=== PATIENT | male | born 1950 | race Caucasian/White ===

== ENCOUNTER → 2017-07-31 | Outpatient (CLI) | payer BC | LOC: PREOP 05:36 | PROVIDERS: ATTEND Internal Medicine | DX: Z01.818 Encounter for other preprocedural examination (principal); Z12.11 Encounter for screening for malignant neoplasm of colon ==

== ENCOUNTER 2017-08-08 07:28 | Day surgery (SDC) | payer BC ==
--- NOTE | 2017-07-18 06:02 | HISTORY AND PHYSICAL ---
DATE OF SERVICE: SCREENING COLONOSCOPY SUMMARY HISTORY OF PRESENT ILLNESS: The patient is a 66-year-old white male seen for yearly wellness evaluation on 07/14. He last underwent colonoscopy in 2005 and had a normal examination at that time. He is not aware of any family history for colon cancer or other GI tract malignancy. He has noted that several blood pressures checked, I think last at the dentist's office were elevated as I recall in the 160-170 systolic range. He has felt well. He is not on any decongestant therapy with no smoking or alcohol history. 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 In 2013, he underwent lumbar laminectomy and has had no significant radicular pain postprocedure. PHYSICAL EXAMINATION: GENERAL: Reveals a well-appearing white male, 6 feet tall, weighed 203 pounds. VITAL SIGNS: Blood pressure was 160/100 at the beginning of the interview, repeated at the end of the interview was 160/102. HEENT EXAMINATION: Unremarkable. Sclerae nonicteric. NECK: Revealed no JVD, adenopathy or bruits. CHEST: Clear. CARDIOVASCULAR: Revealed a regular rate and rhythm without murmur, S3 or S4. ABDOMEN: Soft, supple without mass, organomegaly or tenderness. Rectal examination was deferred to the time of colonoscopy. EXTREMITIES: Reveal no cyanosis, clubbing or edema. ASSESSMENT AND PLAN: 1. The patient was set up for screening colonoscopy as it has been nearly 12 years since his last colonoscopy that was unremarkable. Prep instructions with SuPrep kit were given and questions were answered. 2. Stage 2 hypertension. After discussion, we will initiate benazepril 10 mg daily with followup appointment in 1 month. Discussed cough and angioedema side effect potential. Job ID: [id number] DocumentID: [id number] Dictated Date: 07/15/2017 13:07:52 Sales Marketing Manager Date: 07/15/2017 13:48:35 Dictated By: BIN MARTINEZ MD [facility]
[~2017-08-08] VITALS: Ht 182.9 cm; Wt 93.4 kg
[~2017-08-08 07:28] MED LIST: BENA10TA2 PO
--- OUTSIDE RECORDS SUMMARY | 2017-08-08 07:33 | XMS REPORT | Continuity of Care Document ---
Author Author [facility] Organization [facility] Address Unknown Phone Unavailable Allergies Active Description Code Type Severity Reaction Onset Reported/Identified Relationship to Patient Clinical Status Yes NKANo Known Allergies NKA Miscellaneous Allergy Unknown N/A 02/28/2006 Medications There is no data. Problems Date Dx Coded Attending Type Code Diagnosis Diagnosed By 04/29/2013 RIK VALADEZ MD Ot 724.2 LUMBAGO 04/29/2013 RIK VALADEZ MD Ot V57.1 PHYSICAL THERAPY NEC 07/14/2013 DENISSE TAYLOR MD Ot 724.2 LUMBAGO 07/14/2013 DENISSE TAYLOR MD Ot V57.1 PHYSICAL THERAPY NEC 09/28/2014 RIK VALADEZ MD Ot 724.02 09/28/2014 RIK VALADEZ MD Ot 722.52 09/28/2014 RIK VALADEZ MD Ot V58.69 09/28/2014 RIK VALADEZ MD Ot 722.52 09/28/2014 RIK VALADEZ MD Ot V64.3 09/28/2014 RIK VALADEZ MD Ot 722.52 09/28/2014 RIK VALADEZ MD Ot V58.69 09/28/2014 MICHELLE DHILLON, BIN Will Ot 722.52 09/28/2014 ARACELY BURGER MD Ot 793.11 09/28/2014 ARACELY BURGER MD Ot 814.00 09/28/2014 ARACELY BURGER MD Ot E000.8 09/28/2014 ARACELY BURGER MD Ot E849.0 09/28/2014 ARACELY BURGER MD Ot E928.9 09/28/2014 RIK VALADEZ MD Ot 724.02 09/28/2014 RIK VALADEZ MD, Ot 722.52 09/28/2014 RIK VALADEZ MD Ot V58.69 09/28/2014 RIK VALADEZ MD Ot 722.52 09/28/2014 RIK VALADEZ MD Ot V64.3 09/28/2014 RIK VALADEZ MD Ot 722.52 09/28/2014 RIK VALADEZ MD Ot V58.69 09/28/2014 BIN MARTINEZ MD Ot 722.52 09/28/2014 ARACELY BURGER MD Ot 793.11 09/28/2014 ARACELY BURGER MD Ot 814.00 09/28/2014 ARACELY BURGER MD Ot E000.8 09/28/2014 ARACELY BURGER MD Ot E849.0 09/28/2014 ARACELY BURGER MD, Ot E928.9 04/06/2015 RIK VALADEZ MD Ot 724.02 04/06/2015 RIK VALADEZ MD Ot 722.52 04/06/2015 RIK VALADEZ MD, Ot V58.69 04/06/2015 RIK VALADEZ MD Ot 722.52 04/06/2015 RIK VALADEZ MD Ot V64.3 04/06/2015 RIK VALADEZ MD Ot 722.52 04/06/2015 RIK VALADEZ MD, Ot V58.69 04/06/2015 BIN MARTINEZ MD Ot 722.52 04/06/2015 ARACELY BURGER MD Ot 793.11 04/06/2015 ARACELY BURGER MD Ot 814.00 04/06/2015 ARACELY BURGER MD Ot E000.8 04/06/2015 ARACELY BURGER MD, Ot E849.0 04/06/2015 ARACELY BURGER MD Ot E928.9 01/24/2016 RIK VALADEZ MD Ot 724.02 SPINAL STENOSIS, LUMBAR REG, W/OUT NEURO 01/24/2016 RIK VALADEZ MD, Ot 722.52 LUMB/LUMBOSAC DISC DEGEN 01/24/2016 RIK VALADEZ MD, Ot V58.69 OT MED,LT,CURRENT USE 01/24/2016 WHITE MD, RIK J Ot 722.52 LUMB/LUMBOSAC DISC DEGEN 01/24/2016 RIK VALADEZ MD Ot V64.3 NO PROC FOR REASONS NEC 01/24/2016 RIK VALADEZ MD Ot 722.52 LUMB/LUMBOSAC DISC DEGEN 01/24/2016 RIK VALADEZ MD Ot V58.69 OTH MED,LT,CURRENT USE 01/24/2016 BIN MARTINEZ MD Ot 722.52 LUMB/LUMBOSAC DISC DEGEN 01/24/2016 ARACELY BURGER MD Ot 793.11 SOLITARY PULMONARY NODULE 01/24/2016 ARACELY BURGER MD Ot 814.00 FX CARPAL BONE NOS-CLOSE 01/24/2016 ARACELY BURGER MD Ot E000.8 OTHER EXTERNAL CAUSE STATUS 01/24/2016 ARACELY BURGER MD Ot E849.0 ACCIDENT IN HOME 01/24/2016 ARACELY BURGER MD Ot E928.9 ACCIDENT NOS 09/13/2016 RIK VALADEZ MD Ot 724.02 SPINAL STENOSIS, LUMBAR REG, W/OUT NEURO 09/13/2016 RIK VALADEZ MD Ot 722.52 LUMB/LUMBOSAC DISC DEGEN 09/13/2016 RIK VALADEZ MD, Ot V58.69 OTH MED,LT,CURRENT USE 09/13/2016 RIK VALADEZ MD Ot 722.52 LUMB/LUMBOSAC DISC DEGEN 09/13/2016 RIK VALADEZ MD Ot V64.3 NO PROC FOR REASONS NEC 09/13/2016 RIK VALADEZ MD Ot 722.52 LUMB/LUMBOSAC DISC DEGEN 09/13/2016 RIK VALADEZ MD Ot V58.69 OTH MED,LT,CURRENT USE 09/13/2016 BIN MARTINEZ MD Ot 722.52 LUMB/LUMBOSAC DISC DEGEN 09/13/2016 ARACELY BURGER MD Ot 793.11 SOLITARY PULMONARY NODULE 09/13/2016 ARACELY BURGER MD Ot 814.00 FX CARPAL BONE NOS-CLOSE 09/13/2016 ARACELY BURGER MD Ot E000.8 OTHER EXTERNAL CAUSE STATUS 09/13/2016 ARACELY BURGER MD Ot E849.0 ACCIDENT IN HOME 09/13/2016 ARACELY BURGER MD Ot E928.9 ACCIDENT NOS 07/17/2017 RIK VALADEZ MD Ot 724.02 SPINAL STENOSIS, LUMBAR REG, W/OUT NEURO 07/17/2017 RIK VALADEZ MD Ot 722.52 LUMB/LUMBOSAC DISC DEGEN 07/17/2017 RIK VALADEZ MD Ot V58.69 OTH MED,LT,CURRENT USE 07/17/2017 RIK VALADEZ MD Ot 722.52 LUMB/LUMBOSAC DISC DEGEN 07/17/2017 IRK VALADEZ MD Ot V64.3 NO PROC FOR REASONS NEC 07/17/2017 RIK VALADEZ MD Ot 722.52 LUMB/LUMBOSAC DISC DEGEN 07/17/2017 RIK VALADEZ MD Ot V58.69 OTH MED,LT,CURRENT USE 07/17/2017 MICHELLE DHILLON, BIN Will Ot 722.52 LUMB/LUMBOSAC DISC DEGEN 07/17/2017 ARACELY BURGER MD Ot 793.11 SOLITARY PULMONARY NODULE 07/17/2017 ARACELY BURGER MD Ot 814.00 FX CARPAL BONE NOS-CLOSE 07/17/2017 ARACELY BURGER MD Ot E000.8 OTHER EXTERNAL CAUSE STATUS 07/17/2017 ARACELY BURGER MD Ot E849.0 ACCIDENT IN HOME 07/17/2017 ARACELY BURGER MD Ot E928.9 ACCIDENT NOS Procedures There is no data. Results There is no data. Encounters ACCT No. Visit Date/Time Discharge Status Pt. Type Provider Facility Loc./Unit Complaint [id number] 02/16/2014 16:04:00 02/16/2014 23:59:59 CLS Outpatient ARACELY BURGER MD [facility] RAD LT WRIST PAIN [id number] 07/07/2013 15:46:00 07/14/2013 16:16:00 DIS Outpatient DENISSE TAYLOR MD [facility] REHAB BACK PAIN [id number] 04/27/2013 08:04:00 04/29/2013 16:19:00 DIS Outpatient RIK VALADEZ MD [facility] REHAB LUMBAGO [id number] 04/22/2013 07:52:00 04/22/2013 23:59:59 CLS Outpatient JENNYFER DHILLON, ARACELY Mays [facility] RAD LUNG NODULAR [id number] 03/25/2013 15:46:00 03/25/2013 23:59:59 CLS Outpatient BIN MARTINEZ MD [facility] RAD BACK PAIN [id number] 03/19/2013 06:59:00 03/19/2013 23:59:59 CLS Outpatient RIK VALADEZ MD [facility] CARD DDD-LUMBAR [id number] 03/18/2013 15:43:00 03/18/2013 23:59:59 CLS Outpatient RIK VALADEZ MD [facility] CARD DDD-LUMBAR [id number] 03/12/2013 10:44:00 03/12/2013 23:59:59 CLS Outpatient RIK VALADEZ MD [facility] CARD DDD-LUMBAR [id number] 03/04/2013 12:11:00 03/04/2013 23:59:59 CLS Outpatient RIK VALADEZ MD [facility] RAD LUMBAGO [id number] 08/08/2017 08:00:00 PEN Preadmit BIN MARTINEZ MD [facility] ENDO SCREENING [id number] 09/28/2014 10:20:00 Document Registration
--- OUTSIDE RECORDS SUMMARY | 2017-08-08 07:33 | XMS REPORT | Continuity of Care Document ---
Author Author [employer] Organization [facility] Address Unknown Phone Unavailable Care Team Providers Care Metal Cabinet Finisher Name Role Phone [employer] Unavailable Unavailable Problems Medications Allergies, Adverse Reactions, Alerts Immunizations Results Vital Signs Encounters Procedures Plan of Care Social History Assessment and Plan Family History Advance Directives Functional Status
[2017-08-08] MEDS ORDERED: 1/2 NS IV SOLUTION 1,000 ML IV ONE (07:34)
[2017-08-08] MEDS ORDERED: fentaNYL INJECTION 100 MCG/2 ML AMP ONE (07:45)
[2017-08-08] MEDS ORDERED: LIDOCAINE JELLY 2% (XYLOCAINE) 5 ML TUBE ONE (07:45)
[2017-08-08] MEDS ORDERED: MIDAZOLAM 2 MG/2 ML (VERSED) VIAL ONE (07:45)
[2017-08-08] MEDS ORDERED: 1/2 NS IV SOLUTION 1,000 ML IV STA (08:18)
[2017-08-08 08:20] VITALS: BP 148/92
[2017-08-08] MEDS ORDERED: LIDOCAINE JELLY 2% (XYLOCAINE) 5 ML TUBE MM PRN (08:30)
[2017-08-08] MEDS ORDERED: MIDAZOLAM 2 MG/2 ML (VERSED) VIAL IVP PRN (08:30)
[2017-08-08] MEDS ORDERED: fentaNYL INJECTION 100 MCG/2 ML AMP IVP PRN (08:30)
--- NOTE | 2017-08-08 08:44 | Pre-Op Note & Conscious Sedat ---
Pre-Operative Progress Note H&P Reviewed The H&P was reviewed, patient examined and no changes noted. Date H&P Reviewed: Aug 08, 2017 Time H&P Reviewed: 07:50 Conscious Sedation Pre-Proced ASA Class: 2 Airway Mallampati Classification: ([place] appropriate class) I. II. III, IV Lungs Heart ASA score ASA 1: a normal healthy patient ASA 2: a patient with a mild systemic disease (mid diabetes, controlled hypertension, obesity ASA 3: a patient with a severe systemic disease that limits activity (angina , COPD, prior Myocardial infarction) ASA 4: a patient with an incapacitating disease that is a constant threat to life (CHF, renal failure) ASA 5: a moribund patient not expected to survive 24 hrs. (ruptured aneurysm) ASA 6: a declared brain patient whose organs are being harvested. For emergent operations, add the letter E after the classification Grade 2 Sedation Plan: Analgesia, Amnesia, Plan communicated to team members, Discussed options with patient/fam, Discussed risks with patient/fam Note The patient is an appropriate candidate to undergo the planned procedure, sedation, and anesthesia. The patient immediately re-assessed prior to indication. BIN MARTINEZ MD Aug 08, 2017 08:44
[2017-08-08 08:45] VITALS: BP 165/95
[2017-08-08 09:00] VITALS: BP 159/93
[2017-08-08 09:51] VITALS: BP 159/93
--- NOTE | 2017-08-08 16:35 | OPERATIVE REPORT ---
DATE OF SERVICE: COLONOSCOPY SUMMARY INDICATION FOR PROCEDURE: Screening colonoscopy. DESCRIPTION OF PROCEDURE: The patient was placed in the left lateral decubitus position. Prior to undergoing colonoscopy digital rectal evaluation was performed. Anal sphincter tone was normal and the perianal reflex was intact. The prostate was normal in size, anodular and nontender to digital inspection. No abnormalities were noted on digital inspection of the anal canal or distal rectal vault. The colonoscope was then inserted into the rectum and under direct visualization advanced to the cecum. The cecum was identified by identification of the ileocecal valve and the cecal strap. Photographic documentation was obtained. Careful inspection was made as the colonoscope was withdrawn. The quality of prep was good. The patient tolerated the procedure well. FINDINGS: There was no evidence for internal or external hemorrhoids. The rectum was unremarkable. Present throughout the colon were numerous npxnh-so-jpqhhacd size venous lakes, no evidence for bleeding or stigmata for increase in bleeding risk were noted. Several small to medium size sigmoid diverticulum were present without evidence for diverticulitis. Other than the aforementioned venous lakes, the descending colon, splenic flexure, transverse colon, hepatic flexure were unremarkable. Present in the proximal ascending colon was a questionable diminutive polyp, somewhat umbilicated, but with uniform mucosal features, no evidence for ulceration. It was photographed and biopsied and ablated and submitted for histopathology with no blood loss. The cecum of the colon was unremarkable. ASSESSMENT: Questionable diminutive sessile polyp was removed from the proximal ascending colon via hot forceps as noted above. The patient did demonstrate multiple small to medium size venous lakes throughout the colon with no arterial vascular malformations being noted. Mild diverticular disease confined to the sigmoid colon was present without evidence for diverticulitis. As long as there are no surprises on histopathology report, we will likely be advocating consideration for repeat screening colonoscopy in 10 years. Job ID: [id number] DocumentID: [id number] Dictated Date: 08/08/2017 09:28:32 Hazardous Materials Handler Date: 08/08/2017 16:34:40 Dictated By: BIN MARTINEZ MD [facility]
== END 2017-08-08 09:10 | disposition home or self-care (01) ==
LOC: ENDO 07:28
PROVIDERS: ATTEND Internal Medicine
DX: Z12.11 Encounter for screening for malignant neoplasm of colon (principal); K63.5 Polyp of colon; K57.30 Diverticulosis of large intestine without perforation or abscess without bleeding; K55.8 Other vascular disorders of intestine; I10 Essential (primary) hypertension; Z79.899 Other long term (current) drug therapy

== ENCOUNTER → 2019-08-17 | Outpatient (CLI) | payer MEDICARE ==
[~2019-08-17] MED LIST changes: -BENA10TA2 PO; +BENA10TA66 PO
--- NOTE | 2019-08-17 11:14 | Diagnostic Imaging Report ---
EXAMINATION: Right humerus. INDICATION: Injury. AP and lateral views were obtained. COMPARISON: There are no prior studies available for comparison. FINDINGS: There is no fracture, dislocation or acute bony abnormality evident. There are two linear areas of increased density overlying the scapula. These are of uncertain etiology but unlikely related to a fracture. There is mild degenerative disease involving the glenohumeral and acromioclavicular joints. The elbow joint where visualized is unremarkable. The soft tissues show no sign of an acute injury. IMPRESSION: 1. There is no evidence for an acute bony abnormality. 2. If there is clinical concern regarding an injury to the rotator cuff or labrum, then MRI would be recommended for further evaluation. 3. These results were discussed with Dr. Hoffmann. Dictated by: Dictated on workstation # [id number]
== END ==
LOC: RAD 10:52
PROVIDERS: ATTEND Internal Medicine
DX: S49.91XA Unspecified injury of right shoulder and upper arm, initial encounter (principal)
CPT/HCPCS: 73060

== ENCOUNTER → 2021-03-14 | Outpatient (CLI) | payer MEDICARE | LOC: CARD 13:22 | PROVIDERS: ATTEND Internal Medicine Cardiovascular Disease | DX: I10 Essential (primary) hypertension (principal); I25.10 Atherosclerotic heart disease of native coronary artery without angina pectoris | CPT/HCPCS: 93306 ==

== ENCOUNTER 2021-05-25 13:35 | Inpatient (IN) | payer OTHER, MEDICARE ==
[~2021-05-25] VITALS: Ht 177 cm; Wt 95.3 kg
[2021-05-25] MEDS ORDERED: LACTULOSE SYRUP 10GM/15ML (ENULOSE) 30ML UDC PO PRN (14:15)
[2021-05-25] MEDS ORDERED: FLEET ENEMA ADULT 1 EA BTL PR PRN (14:15)
[2021-05-25] MEDS ORDERED: ACETAMINOPHEN 325 MG TABLET PO PRN (14:15)
[2021-05-25] MEDS ORDERED: ALPRAZolam 0.25 MG (XANAX) TAB PO PRN (14:15)
[2021-05-25] MEDS ORDERED: DOCUSATE SODIUM 100 MG (COLACE) CAP PO PRN (14:15)
[2021-05-25] MEDS ORDERED: MELATONIN 3 MG TABLET PO PRN (14:15)
[2021-05-25] MEDS ORDERED: LOPERAMIDE 2 MG (IMODIUM) TABLET PO PRN (14:15)
[2021-05-25] MEDS ORDERED: BISACODYL 10 MG SUPP (DULCOLAX) PR PRN (14:15)
[2021-05-25] MEDS ORDERED: ONDANSETRON 4 MG (ZOFRAN) ORAL DISSOLVE TAB PO PRN (14:15)
[2021-05-25] MEDS ORDERED: ACETAMINOPHEN 500 MG TAB (TYLENOL) PO PRN (14:15)
[2021-05-25] MEDS ORDERED: guaiFENesin/CODEINE (ROBITUSSIN AC) 10ML UDC PO PRN (14:15)
[2021-05-25] MEDS ORDERED: CALCIUM CARBONATE 500 MG (TUMS) TAB.CHEW PO PRN (14:15)
[2021-05-25] MEDS ORDERED: ACET-2267 PO (15:39)
[2021-05-25] MEDS ORDERED: benazepril (15:39)
[2021-05-25] MEDS ORDERED: ASPI-808 PO (15:39)
[2021-05-25] MEDS ORDERED: CHOL500L3 PO (15:39)
[2021-05-25] MEDS ORDERED: OXC5T PO (15:45)
[2021-05-25] MEDS ORDERED: OMEP20TA7 PO (15:45)
[2021-05-25] MEDS ORDERED: MELO7.5T46 PO (15:45)
[2021-05-25] MEDS ORDERED: FLUO40CA PO ×2 (15:45)
[2021-05-25] MEDS ORDERED: POLY17PO54 PO (15:45)
[2021-05-25] MEDS ORDERED: CHOL200059 PO (16:17)
[2021-05-25] MEDS ORDERED: BENA40TA84 PO (16:17)
--- NOTE | 2021-05-25 16:23 | PM&R Post Admission Assessment ---
PM&R Date of Visit: May 25, 2021 Time of Visit: 17:45 History of Present Illness Chief complaint: Skydiving accident frame right femur fracture left ankle fracture History of present illness: This is a 70-year-old white male with past medical history of hypertension who suffered significant injuries in a skydiving accident with a parachute malfunctioned. He had surgery on Friday to repair right femur fracture and left ankle fracture. Dr. Chaney had repaired his right ankle with hardware placement in June and required due to chronic urticaria from the metal in the hardware. The ankle had nearly healed when this injury occurred. Currently has no difficulty voiding and his bowels are moving now. He does report a penile ecchymosis but no pain. His is at the bedside. Past Acywopr-Xfpkqg-Xeppsz Hx Past Med/Social Hx: Reviewed Nursing Past Med/Soc Hx, Reviewed and Corrections made Patient Social History Marrital Status: Employed/Student: employed Alcohol Use: Occasionally Uses Smoking Status: Never a Smoker Recent Hopitalizations: No Immunizations Up To Date Date of Influenza Vaccine: Mar 16, 2017 Seasonal Allergies Seasonal Allergies: No Past Medical History Surgeries: Orthopedic Cardiac: Hypertension Psychosocial: Anxiety, Depression PM&R Allergy/Meds/Data Review Allergies Coded Allergies: No Known Allergies (Verified Allergy, Unknown, 02/28/06) Home Medications Scheduled Acetaminophen (Tylenol Extra Strength), 1,000 MG PO Q8H, (Reported) Aspirin (Aspirin), 325 MG PO BID, (Reported) Benazepril HCl (Benazepril HCl), 40 MG PO DAILY, (Reported) Cholecalciferol (Vitamin D3) (Vitamin D3), 50 MCG PO DAILY, (Reported) Fluoxetine HCl (Fluoxetine HCl), 40 MG PO DAILY, (Reported) Meloxicam (Meloxicam), 7.5 MG PO DAILY, (Reported) Omeprazole (Omeprazole), 20 MG PO DAILY, (Reported) Polyethylene Glycol 3350 (Polyethylene Glycol 3350), 17 GM PO DAILY, (Reported) Scheduled PRN Oxycodone Hcl (Oxyir Tablet), 1-2 TAB PO Q4H PRN for PAIN-SEVERE (8-10), (Reported) Discontinued Medications Benazepril HCl (Benazepril HCl), 10 MG PO DAILY, (Reported) Discontinued Reason: No Longer Taking Cholecalciferol (Vitamin D3) (Vitamin D3), 12.5 MCG PO DAILY, (Reported) Discontinued Reason: No Longer Taking Fluoxetine HCl (Fluoxetine HCl), 40 MG PO DAILY, (Reported) Discontinued Reason: No Longer Taking [benazepril], DAILY, (Reported) Discontinued Reason: No Longer Taking Current Medications Current Medications Reviewed Review of Systems Constitutional: see HPI, malaise, weakness EENTM: no symptoms reported Respiratory: no symptoms reported Cardiovascular: no symptoms reported Gastrointestinal: no symptoms reported Genitourinary: no symptoms reported Musculoskeletal: back pain, muscle pain, muscle stiffness, muscle cramps, muscle weakness Skin: no symptoms reported Psychiatric/Neurological: Anxiety, Depressed All Other Systems Reviewed Negative Unless Noted: Yes Physical Exam Physical Exam Vital Signs Capillary Refill : Height, Weight, BMI Height: 6'0.00" Weight: 206lbs. 0.0oz. 93.855463rz; 27.9 BMI Method: General Appearance: No Apparent Distress, WD/WN Eyes: Bilateral Eye Normal Inspection, Bilateral Eye PERRL HEENT: PERRL/EOMI, Normal ENT Inspection, Pharynx Normal Neck: Full Range of Motion, Normal Inspection, Non Tender, Supple, Carotid Bruit Respiratory: Chest Non Tender, Lungs Clear, Normal Breath Sounds, No Accessory Muscle Use, No Respiratory Distress Cardiovascular: Regular Rate, Rhythm, No Edema, No Gallop, No JVD, No Murmur, Normal Peripheral Pulses Gastrointestinal: Normal Bowel Sounds, No Organomegaly, No Pulsatile Mass, Non Tender, Soft Back: Normal Inspection, No CVA Tenderness, No Vertebral Tenderness Extremity: Normal Capillary Refill, Normal Inspection, Normal Range of Motion (Limited left ankle and right leg), Non Tender, No Calf Tenderness, No Pedal Edema Neurologic/Psychiatric: Alert, Oriented x3, No Motor/Sensory Deficits, Normal Mood/Affect, Other (Nonweightbearing) Skin: Normal Color, Warm/Dry Lymphatic: No Adenopathy PM&R Medical Assessment & Plan REHAB/MEDICAL ASSESSMENT AND PLAN: REHAB IMPAIRMENT GROUP: Traumatic orthopedic injuries ETIOLOGIC DIAGNOSIS: Traumatic orthopedic injuries The comorbidities that impact the patients function and/or functional outcome by: Nonweightbearing status REHAB PLAN: The patient is being admitted to our comprehensive inpatient rehabilitation facility and can tolerate the intensity of service consisting of at least: 180 minutes of therapy a day, 5 out of 7 days a week Rehab treatment will consist of: PT and OT will focus on regaining function with nonweightbearing status and increasing ADLs with the use of assistive devices The patient/family has a good understanding of our discharge process and will benefit from an interdisciplinary inpatient rehabilitation program. The patient has potential to make improvement and is in need of at least two of the following multidisciplinary therapies including but not limited to physical, occupational, speech, and prosthetics and orthotics. Additionally the patient will need services from respiratory, nutritional services, wound care, psychology, etc. (Customize this to each patient). Given the patients complex condition and risk of further medical complications, rehabilitation services cannot be safely or effectively provided at a lower level of care such as a fpc facility. BARRIERS TO DISCHARGE: Nonweightbearing status ESTIMATED LOS: 14 days DISPOSITION: Home RELEVANT CHANGES SINCE PREADMISSION SCREENING: I have compared the patients medical and functional status at the time of the preadmission screening and there are: No changes PROGNOSIS: Good REHABILITATION GOALS: 1. PT and OT will focus on regaining function with nonweightbearing status and increasing ADLs with the use of assistive devices All the above goals were reviewed with the patient and he/she is in agreement. By signing this document, I acknowledge that I have personally performed a full physical examination on this patient within 24 hours of admission to this inpatient rehabilitation facility and have determined the patient to be able to tolerate the above course of treatment at an intensive level for a reasonable period of time. I will be completing a detailed individualized Plan of Care for this patient by day #4 of the patients stay based upon the Preadmission Screen, the Post-Admission Evaluation, and the therapy evaluations. Admission Dx/Comorbidities: (1) Trauma ICD Codes: T14.90XA - Injury, unspecified, initial encounter (2) Closed right femoral fracture ICD Codes: S72.91XA - Unspecified fracture of right femur, initial encounter for closed fracture (3) Closed left ankle fracture ICD Codes: S82.892A - Other fracture of left lower leg, initial encounter for closed fracture Assessment/Plan Assessment and Plan Assess & Plan/Chief Complaint Assessment: Skydiving accident Right femur fracture Left ankle fracture Hypertension 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 Chaney Plan: Monitor pain Monitor bowel function Aggressive PT and OT RUDDY MEJIA 10, 2021 16:23
[2021-05-25] MEDS ORDERED: ACETAMINOPHEN 500 MG TAB (TYLENOL) PO SCH (16:30)
[2021-05-25 17:30] VITALS: BP 121/72
[2021-05-25] MEDS: ASPIRIN 325 MG (5 GR) TABLET PO SCH (18:25)
[2021-05-25 20:05] VITALS: BP 127/68
[2021-05-25] MEDS ORDERED: polyethylene glycoL POWDER 17 GM (MIRALAX) PACK PO SCH (21:00)
[2021-05-25] MEDS: DOCUSATE SODIUM 100 MG (COLACE) CAP PO SCH (21:36)
[2021-05-25] MEDS: ACETAMINOPHEN 500 MG TAB (TYLENOL) PO PRN (21:38)
[2021-05-25] MEDS: SENNA W/DOCUSATE (SENOKOT S) TABLET PO SCH (21:40)
[2021-05-26 06:45] LABS: BASOPHILS # (AUTO) 0.1 10^3/uL (0.0-0.1); BASOPHILS % (AUTO) 1 % (0-10); EOSINOPHILS # (AUTO) 0.2 10^3/uL (0.0-0.3); EOSINOPHILS % (AUTO) 2 % (0-10); HEMATOCRIT 24 % (40-54); HEMOGLOBIN 7.8 g/dL (13.3-17.7); LYMPHOCYTES # (AUTO) 1.3 10^3/uL (1.0-4.0); LYMPHOCYTES % (AUTO) 14 % (12-44); MEAN CORPUSCULAR HEMOGLOBIN 27 pg (25-34); MEAN CORPUSCULAR HGB CONC 33 g/dL (32-36); MEAN CORPUSCULAR VOLUME 83 fL (80-99); MEAN PLATELET VOLUME 8.3 fL (9.0-12.2); MONOCYTES % (AUTO) 11 % (0-12); NEUTROPHILS # (AUTO) 5.9 10^3/uL (1.8-7.8); NEUTROPHILS % (AUTO) 64 % (42-75); PLATELET COUNT 273 10^3/uL (130-400); WHITE BLOOD COUNT 9.2 10^3/uL (4.3-11.0)
[2021-05-26 06:58] LABS: ALBUMIN 3.2 GM/DL (3.2-4.5); POTASSIUM 4.9 MMOL/L (3.6-5.0)
[2021-05-26 06:59] LABS: CALCIUM 8.9 MG/DL (8.5-10.1)
[2021-05-26 07:00] LABS: TOTAL PROTEIN 5.7 GM/DL (6.4-8.2)
[2021-05-26 07:02] LABS: BILIRUBIN,TOTAL 0.9 MG/DL (0.1-1.0)
[2021-05-26 07:04] LABS: CREATININE SERUM 1.02 MG/DL (0.60-1.30)
[2021-05-26 08:00] VITALS: BP 129/77
[2021-05-26] MEDS ORDERED: NON-FORMULARY MEDICATION 1 EA EA (Benazepril HCl 40 MG) PO SCH (09:00)
[2021-05-26] MEDS ORDERED: NON-FORMULARY MEDICATION 1 EA EA (Fluoxetine HCl 40 MG) PO SCH ×2 (09:00)
[2021-05-26] MEDS ORDERED: NON-FORMULARY MEDICATION 1 EA EA (Cholecalciferol (Vitamin D3) (Vitamin D3) 50 MCG) PO SCH (09:00)
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
[2021-05-26] MEDS: VITAMIN D3 25 MCG (1,000 UNITS) TABLET PO SCH (09:41)
[2021-05-26] MEDS: FLUoxetine HCL 20 MG (PROzac) CAP PO SCH (09:41)
[2021-05-26] MEDS: MELOXICAM 7.5 MG (MOBIC) TABLET PO SCH (09:41)
[2021-05-26] MEDS: ASPIRIN 325 MG (5 GR) TABLET PO SCH ×2 (09:41→18:35)
[2021-05-26] MEDS: PANTOPRAZOLE 20 MG TABLET (PROTONIX) PO SCH (09:42)
[2021-05-26] MEDS: DOCUSATE SODIUM 100 MG (COLACE) CAP PO SCH ×2 (09:42→21:05)
[2021-05-26] MEDS: lisINopril 40 MG (PRINIVIL) TABLET PO SCH (09:42)
[2021-05-26] MEDS: polyethylene glycoL POWDER 17 GM (MIRALAX) PACK PO SCH (09:48)
[2021-05-26] MEDS: SENNA W/DOCUSATE (SENOKOT S) TABLET PO SCH ×2 (09:48→21:05)
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
--- NOTE | 2021-05-26 13:41 | Physical Therapy Daily Note ---
PT Daily Note-Current Subjective Pt agreeable to treatment. Transfers SCALE: Activities may be completed with or without assistive devices. 0-Jsnrpsgapa-ghgulax completes the activity by him/herself with no assistance from a helper. 5-Set-up or Clean-up Assistance-helper sets up or cleans up; patient completes activity. [place] assists only prior to or following the activity. 4-Supervision or Touching Assistance-helper provides verbal cues and/or touching/steadying and/or contact guard assistance as patient completes activity. Assistance may be provided throughout the activity or intermittently. 3-Partial/Moderate Assistance-helper does LESS THAN HALF the effort. [place] lifts, holds or supports trunk or limbs, but provides less than half the effort. 2-Substantial/Maximal Assistance-helper does MORE THAN HALF the effort. [place] lifts or holds trunk or limbs and provides more than half the effort. 1-Yrftgfvvn-fuhxav does ALL the effort. Patient does none of the effort to complete the activity. Or, the assistance of 2 or more helpers is required for the patient to complete the activity. If activity was not attempted, code reason: 7-Patient Refused. 9-Not Applicable-not attempted and the patient did not perform the activity before the current illness, exacerbation or injury. 10-Not Attempted due to Environmental Limitations-(lack of equipment, weather restraints, etc.). 88-Not Attempted due to Medical Conditions or Safety Concerns. Practiced use of slide board to (L) and (R) from varied surfaces and heights. Education on technique and safety. Weight Bearing Right Lower Extremity: Right Non Weight Bearing Left Lower Extremity: Left Non Weight Bearing Right shoulder non wt bearing unless at the side and internally rotated Wheelchair Training Does the Pt Use a Wheelchair?: Yes Type of Wheelchair: Manual Worked on self propulsion with manual wheel chair. Reviewed safety of brake setting and also use of foot propulsion to reduce strain on his injured shoulders. Pt needs footware wih traction in order to effectively foot propel the w/c. Exercises Supine Ex: Ankle pumps, Quad Set, Rolling, Glut sets, Lower trunk rotation, Heel Slides, Short Arc Quads, Resisted flex/ext, Straight leg raise, Hip abd/add Supine Reps: 30 Assessment Current Status: Fair Progress Pt made gains during treatment. Education improved his slideboard and w/c managment. Exercise benefited quad contraction and knee ROM. Co treated this session with OT to allow maximization dual task activities between UE and LE function. OT focused on UE hand placement and training while PT focused on protecting weight bearing status and trunk control. PT Short Term Goals Short Term Goals Time Frame: May 30, 2021 Roll Left & Right: 6 Sit to lyin Lying to sitting on side of be: 6 Sit to stand: 88 Chair/qyd-pq-ykriv transfer: 5 Toilet transfer: 5 Car transfer: 4 Walk 10 feet: 88 Walk 50 feet with two turns: 88 Walk 150 feet: 88 Walking 10ft on uneven surface: 88 1 step (curb): 88 4 steps: 88 12 steps: 88 Picking up objects: 88 Does pt use a wc or scooter: Yes Wheel 50ft w/2 turns: 6 Wheel 150 feet: 5 Type: Manual PT Shelter Goals Shelter Goals PT Gum Cook Goals Time Frame: Jun 02, 2021 Roll Left & Right (QC): 6 Sit to Lying (QC): 6 Lying-Sitting on Side/Bed(QC): 6 Sit to Stand (QC): 88 Chair/Kpc-wo-Ukdqd Xfer(QC): 6 Toilet Transfer (QC): 6 Car Transfer (QC): 5 Does the Patient Walk: No and Walking Goal NOT indicated Walk 10 feet (QC): 88 Walk 50ft with 2 Turns (QC): 88 Walk 150 ft (QC): 88 Walking 10ft on Uneven Surface: 88 1 Step (curb) (QC): 88 4 Steps (QC): 88 12 Steps (QC): 88 Picking up an Object (QC): 88 Does the Pt use WC or Scooter?: Yes Wheel 50 feet with 2 turns (QC: 6 Type: Manual Wheel 150 feet: 6 Type: Manual PT Plan Treatment/Plan Treatment Plan: Continue Plan of Care Treatment Plan: Bed Mobility, Education, Functional Activity Rey, Functional Strength, Safety, Therapeutic Exercise, Transfers Treatment Duration: Jun 02, 2021 Frequency: At least 5 of 7 days/Wk (IRF) Estimated Hrs Per Day: 1.5 hours per day Patient and/or Family Agrees t: Yes Time/GCodes Time In: 810 Time Out: 0930 Total Billed Treatment Time: 80 Total Billed Treatment visit, FA 15min, Ex 65 min FADIA GILMORE PT May 26, 2021 13:40
[2021-05-26 20:00] VITALS: BP 121/64
--- NOTE | 2021-05-27 06:17 | PM&R Progress Note ---
Subjective HPI/CC On Admission Date Seen by Provider: May 27, 2021 Time Seen by Provider: 12:00 Subjective/Events-last exam 05/27/21: Patient doing well Had shower today with his helping him Pain after shower required pain pill Iron low and he is willing to have iron infusions and it is indicated due to hgb 7.8 and he feels run down B12 low also so will supplement that too Back rash will be managed with cream 05/26/21: No major issues Worked with therapy very well per William, PT Transfers well Hgb 7.8 will await iron level BM+ Voiding well LFT good Review of Systems General: Fatigue, Malaise Musculoskeletal: back pain, hand pain, leg pain, foot pain Objective Exam Vital Signs Vital Signs Date Time Temp Pulse Resp B/P (MAP) Pulse Ox O2 Delivery O2 Flow Rate FiO2 05/27/21 20:36 98 Room Air 05/27/21 19:56 37.0 85 18 119/60 (79) Capillary Refill : General Appearance: No Apparent Distress, WD/WN HEENT: PERRL/EOMI, Normal ENT Inspection, Pharynx Normal Neck: Full Range of Motion, Normal Inspection, Non Tender, Supple, Carotid Bruit Respiratory: Chest Non Tender, Lungs Clear, Normal Breath Sounds, No Accessory Muscle Use, No Respiratory Distress Cardiovascular: Regular Rate, Rhythm, No Edema, No Gallop, No JVD, No Murmur, Normal Peripheral Pulses Gastrointestinal: Normal Bowel Sounds, No Organomegaly, No Pulsatile Mass, Non Tender, Soft Back: Normal Inspection, No CVA Tenderness, No Vertebral Tenderness Extremity: Normal Capillary Refill, Normal Inspection, Normal Range of Motion (Limited left ankle and right leg), Non Tender, No Calf Tenderness, No Pedal Edema Neurologic/Psychiatric: Alert, Oriented x3, No Motor/Sensory Deficits, Normal Mood/Affect, Other (Nonweightbearing) Skin: Normal Color, Warm/Dry Lymphatic: No Adenopathy Results/Procedures Lab Patient resulted labs reviewed. FIM Transfers Therapy Code Descriptions/Definitions Functional [place] Measure: 0=Not Assessed/NA 4=Minimal Assistance 1=Total Assistance 5=Supervision or Setup 2=Maximal Assistance 6=Modified [place] 3=Moderate Assistance 7=Complete IndependenceSCALE: Activities may be completed with or without assistive devices. 3-Dtvtohdnqm-vxvscqo completes the activity by him/herself with no assistance from a helper. 5-Set-up or Clean-up Assistance-helper sets up or cleans up; patient completes activity. [place] assists only prior to or following the activity. 4-Supervision or Touching Assistance-helper provides verbal cues and/or touching/steadying and/or contact guard assistance as patient completes activity. Assistance may be provided throughout the activity or intermittently. 3-Partial/Moderate Assistance-helper does LESS THAN HALF the effort. [place] lifts, holds or supports trunk or limbs, but provides less than half the effort. 2-Substantial/Maximal Assistance-helper does MORE THAN HALF the effort. [place] lifts or holds trunk or limbs and provides more than half the effort. 3-Pxvhbumxa-nzpxtg does ALL the effort. Patient does none of the effort to complete the activity. Or, the assistance of 2 or more helpers is required for the patient to complete the activity. If activity was not attempted, code reason: 7-Patient Refused. 9-Not Applicable-not attempted and the patient did not perform the activity before the current illness, exacerbation or injury. 10-Not Attempted due to Environmental Limitations-(lack of equipment, weather restraints, etc.). 88-Not Attempted due to Medical Conditions or Safety Concerns. Roll Left to Right (QC): 4 Sit to Lying (QC): 4 Sit to Stand (QC): 88 Chair/Lhl-pq-Jheeq Xfer(QC): 4 Car Transfer (QC): 88 Gait Training Does the Patient Walk?: No and Walking Goal NOT indicated Walk 10 feet (QC): 88 Walk 50 ft with 2 Turns(QC): 88 Walk 150 ft (QC): 88 Walking 10ft/uneven surface-QC: 88 Wheelchair Training Does the Pt Use a Wheelchair?: Yes Distance: 50 Wheel 50 ft with 2 turns (QC): 4 Wheel 150 ft (QC): 88 Type of Wheelchair: Manual Stair Training 1 Step (curb) (QC): 88 4 Steps (QC): 88 12 Steps (QC): 88 Balance Picking up an Object (QC): 88 ADL-Treatment Eating (QC): 5 Oral Hygiene (QC): 5 Shower/Bathe Self (QC): 3 (per clinical judgement at seated level) Upper Body Dressing (QC): 4 Lower Body Dressing (QC): 4 On/Off Footwear (QC): 88 Toileting Hygiene (QC): 7 Assessment/Plan Assessment and Plan Assess & Plan/Chief Complaint Assessment: Skydiving accident Right femur fracture Left ankle fracture Hypertension 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 Chaney Anemia 7.8 on labs 05/26/21 and iron low so started on Venofer Plan: Monitor pain Monitor bowel function Aggressive PT and OT 05/26/21: Check iron and B12 Pain control 05/27/21: Monitor closely Venofer B12 (1) Trauma (2) Closed right femoral fracture (3) Closed left ankle fracture RUDDY MEJIA DO May 27, 2021 06:17
--- NOTE | 2021-05-27 06:17 | Individualized Plan of Care ---
Individualized Plan of Care Rehab Nursing IPOC Order Admission Date May 25, 2021 at 16:12 Current Orders Orders Admission Order(Inpt,Obs,Sdc) (05/25/21 14:12) Vital Signs: Per Unit Policy ( ,16,00 (05/25/21 14:12) Vivek Olivera (05/25/21 14:12) Sequential Compression Device (05/25/21 14:12) [employer]-Inpt Rehab Con (05/25/21 14:12) Rehab Nursing Orders-Ipoc (05/25/21 14:12) Physical Therapy Rehab Orders (05/25/21 14:12) Occupational Therapy Rehab Ord (05/25/21 14:12) Speech Therapy Rehab Orders (05/25/21 14:12) Cbc With Automated Diff (05/26/21 06:00) Comprehensive Metabolic Panel (05/26/21 06:00) Precautions (Aru) (05/25/21 14:12) Weekly Weight WEEK (05/25/21 14:12) Rehab-Intensity Of Therapy (05/25/21 14:12) Initiate Admission Nursing Pro .admission (05/25/21 14:12) Alprazolam Tablet (Xanax Tablet) (05/25/21 14:15) Calcium Carbonate Chew Tablet (Antacid C (05/25/21 14:15) Diphenhydramine Tablet (Benadryl Tablet) (05/25/21 14:15) Docusate Sodium Capsule (Colace Capsule) (05/25/21 21:00) Docusate Sodium Capsule (Colace Capsule) (05/25/21 14:15) Bisacodyl Suppository (Dulcolax Supposit (05/25/21 14:15) Lactulose Oral Solution (Enulose Oral So (05/25/21 14:15) Na Phos/Na Biphos Enema (Fleet Enema Steve (05/25/21 14:15) Guaifenesin/Codeine Syrup (Robitussin Ac (05/25/21 14:15) Loperamide Tablet (Imodium Tablet) (05/25/21 14:15) Melatonin Tablet (Melatonin Tablet) (05/25/21 14:15) Polyethylene Glycol Powder Pkt (Miralax (05/25/21 21:00) Ondansetron Oral Dissolve Tab (Zofran (05/25/21 14:15) Senna S Tablet (Senokot S Tablet) (05/25/21 21:00) Acetaminophen Tablet/Caplet (Tylenol T (05/25/21 14:15) Acetaminophen Tablet (Tylenol Tablet) (05/25/21 14:15) Code/Resuscitation (05/25/21 14:12) Initiate Admission Nursing Pro .admission (05/25/21 14:12) Weight Bearing Restrictions (05/25/21 14:39) Admission Arrival Bed Request (05/25/21 16:12) Acetaminophen Tablet (Tylenol Tablet) (05/25/21 16:30) Aspirin Tablet (Aspirin Tablet) (05/25/21 18:00) Meloxicam Tablet (Mobic Tablet) (05/26/21 09:00) Oxycodone Immediate Rel Tablet (Oxyir Ta (05/25/21 16:30) Polyethylene Glycol Powder Pkt (Miralax (05/26/21 09:00) (Nf) Benazepril Hcl (05/26/21 09:00) (Nf) Cholecalciferol (Vitamin D3) (Vitam (05/26/21 09:00) (Nf) Fluoxetine Hcl (05/26/21 09:00) (Nf) Fluoxetine Hcl (05/26/21 09:00) (Nf) Omeprazole (05/26/21 09:00) Cholecalciferol Capsule/Tablet (Vitamin (05/26/21 09:00) Fluoxetine Capsule (Prozac Capsule) (05/26/21 09:00) Pantoprazole Tablet (Protonix Tablet) (05/26/21 09:00) Lisinopril Tablet (Zestril Tablet) (05/26/21 09:00) Acetaminophen Tablet (Tylenol Tablet) (05/25/21 17:30) Isolation Central Supply Req (05/25/21 17:29) General/Regular (05/25/21 Dinner) Iron Test (Fe) (05/26/21 07:49) Vitamin B 12 (05/26/21 07:49) Patient Visit (05/26/21 ) Pt Eval High Complexity (05/26/21 ) Exercise Therap, Ea 15 Min (05/26/21 ) Functional Activities, Ea 15 (05/26/21 ) Cyanocobalamin Injection (Vitamin B-12 I (05/27/21 11:45) Cyanocobalamin Tablet (Vitamin B-12 Tabl (05/28/21 07:00) Iv Heplock-Insert (Order) (05/27/21 12:02) Iron Sucrose Injection (Venofer Injectio (05/27/21 12:15) Iron Sucrose Injection (Venofer Injectio (05/29/21 10:00) Hydrocortisone 2.5% Cream (Anusol-Hc 2.5 (05/27/21 21:00) Rehab Nursing Orders: Ongoing Assess. of Cognitive Status, Ongoing Assess. of Function Status, Bladder Management, Bladder Scan, Bladder Training, Bowel Management, Bowel Training, Disease Management & Educaiton, DVT Prophylaxis, Fall Prevention, Fluid/Electrolyte/Nutrition Mgmt, Infection Prevention, Medication Management & Education, Management of Risks & Complications, Management of Skin Intergrity, Nutrition Management, Pain Management, Patient/Family Support, Safety Management, Wound Management Intensity of Therapy to be met Patient to be seen: Min.3h per day/5 of 7d PT IPOC Problem List: Activity Tolerance, Functional Strength, Safety, Transfer, Bed Mobility, ROM Treatment Plan: Continue Plan of Care Bed Mobility, Education, Functional Activity Rey, Functional Strength, Safety, Therapeutic Exercise, Transfers Treatment Duration: Jun 02, 2021 Frequency: At least 5 of 7 days/Wk (IRF) Estimated Hrs Per Day: 1.5 hours per day OT IPOC Problems: Decreased Activ Tolerance, Decreased UE Strength, Impaired Funct Balance, Impaired I ADL's, Impaired Self-Care Skills, Restricted Funct UE ROM OT Treatment, Training and Edu: Yes Plan of Care: ADL Retraining, Functional Mobility, Group Exercise/Act as Ind, Orthotic Fitting/Training, UE Funct Exercise/Act, W/C Management Training Treatment Duration: Jun 06, 2021 Frequency: At least 5 of 7 days/Wk (IRF) Estimated Hrs Per Day: 1.[address] IPOC Speech Therapy Treatment Plan: Discontinue ST Treatment Duration: May 25, 2021 Frequency: Modified Program (IRF) Estimated Hrs Per Day: Other [employer]/Case Mgmt [employer]/Case Managemen: Discharge Planning Dietitian/General Manager Dietitian/General Manager to monitor nutritional status and make changes and/or recommendations as needed and work with speech pathology on dietary upgrades as the occur. Physician IPOC Medical Issues being managed closely and that require the 24 hour availability of a physician: Recent catastrophic trauma with fractures and now low hgb with B12 deficiency will be at high risk for decompensation Medical Issues: Bowel/Bladder Function, DVT Prophylaxis, Falls Precautions, Fluid/Electrolyte/Nutrition Balance, Infection Protection, Pain Management, Weight Bearing Precautions, Wound Care Brief Synthesis of Preadmission Screen, Post-Admission Evaluation, and Therapy Evaluations: PT OT will focus on regaining function with use of AD in order to ambulate and increase ADL's in order to go home with spouse Medical Prognosis: Good Anticipated Length of Stay: 7 days RUDDY MEJIA DO May 27, 2021 06:17
[2021-05-27] MEDS: FLUoxetine HCL 20 MG (PROzac) CAP PO SCH (07:36)
[2021-05-27] MEDS: lisINopril 40 MG (PRINIVIL) TABLET PO SCH (07:37)
[2021-05-27] MEDS: ASPIRIN 325 MG (5 GR) TABLET PO SCH ×2 (07:37→17:24)
[2021-05-27] MEDS: DOCUSATE SODIUM 100 MG (COLACE) CAP PO SCH ×2 (07:37→20:21)
[2021-05-27] MEDS: VITAMIN D3 25 MCG (1,000 UNITS) TABLET PO SCH (07:37)
[2021-05-27] MEDS: SENNA W/DOCUSATE (SENOKOT S) TABLET PO SCH ×2 (07:37→20:21)
[2021-05-27] MEDS: MELOXICAM 7.5 MG (MOBIC) TABLET PO SCH (07:37)
[2021-05-27] MEDS: PANTOPRAZOLE 20 MG TABLET (PROTONIX) PO SCH (07:38)
[2021-05-27 07:40] VITALS: BP 132/67
[2021-05-27] MEDS ORDERED: CYANOCOBALAMIN INJ 1000 MCG/ML IM ONE (11:45)
[2021-05-27] MEDS ORDERED: IRON SUCROSE 200 MG/10 ML (VENOFER) VIAL IV SCH (12:15)
[2021-05-27] MEDS: polyethylene glycoL POWDER 17 GM (MIRALAX) PACK PO SCH (13:38)
[2021-05-27 19:56] VITALS: BP 119/60
[2021-05-27] MEDS: diphenhydrAMINE 25 MG TAB (BENADRYL) PO PRN (20:21)
[2021-05-27] MEDS: HYDROCORTISONE 2.5% CREAM (ANUSOL-HC) 30 GM TOP SCH (20:23)
--- NOTE | 2021-05-28 06:06 | PM&R Progress Note ---
Subjective HPI/CC On Admission Date Seen by Provider: May 28, 2021 Time Seen by Provider: 11:15 Subjective/Events-last exam 05/28/2021: Pt doing really well Will consult Dr. Chaney to evaluate the orthopedic suture lines Bowel regimen maintained IV iron infusion maintained and B12 05/27/21: Patient doing well Had shower today with his helping him Pain after shower required pain pill Iron low and he is willing to have iron infusions and it is indicated due to hgb 7.8 and he feels run down B12 low also so will supplement that too Back rash will be managed with cream 05/26/21: No major issues Worked with therapy very well per William, PT Transfers well Hgb 7.8 will await iron level BM+ Voiding well LFT good Review of Systems General: Fatigue, Malaise Musculoskeletal: arm pain, back pain, hand pain, leg pain Objective Exam Vital Signs Vital Signs Date Time Temp Pulse Resp B/P (MAP) Pulse Ox O2 Delivery O2 Flow Rate FiO2 05/28/21 21:00 Room Air 05/28/21 19:45 37.0 95 16 112/71 (85) 98 Capillary Refill : General Appearance: No Apparent Distress, WD/WN HEENT: PERRL/EOMI, Normal ENT Inspection, Pharynx Normal Neck: Full Range of Motion, Normal Inspection, Non Tender, Supple, Carotid Bruit Respiratory: Chest Non Tender, Lungs Clear, Normal Breath Sounds, No Accessory Muscle Use, No Respiratory Distress Cardiovascular: Regular Rate, Rhythm, No Edema, No Gallop, No JVD, No Murmur, Normal Peripheral Pulses Gastrointestinal: Normal Bowel Sounds, No Organomegaly, No Pulsatile Mass, Non Tender, Soft Back: Normal Inspection, No CVA Tenderness, No Vertebral Tenderness Extremity: Normal Capillary Refill, Normal Inspection, Normal Range of Motion, Non Tender, No Calf Tenderness, No Pedal Edema Neurologic/Psychiatric: Alert, Oriented x3, No Motor/Sensory Deficits, Normal Mood/Affect, Other Skin: Normal Color, Warm/Dry Lymphatic: No Adenopathy Results/Procedures Lab Patient resulted labs reviewed. FIM Transfers Therapy Code Descriptions/Definitions Functional [place] Measure: 0=Not Assessed/NA 4=Minimal Assistance 1=Total Assistance 5=Supervision or Setup 2=Maximal Assistance 6=Modified [place] 3=Moderate Assistance 7=Complete IndependenceSCALE: Activities may be completed with or without assistive devices. 6-Pqledljrcg-cemaywr completes the activity by him/herself with no assistance from a helper. 5-Set-up or Clean-up Assistance-helper sets up or cleans up; patient completes activity. [place] assists only prior to or following the activity. 4-Supervision or Touching Assistance-helper provides verbal cues and/or touching/steadying and/or contact guard assistance as patient completes activity. Assistance may be provided throughout the activity or intermittently. 3-Partial/Moderate Assistance-helper does LESS THAN HALF the effort. [place] lifts, holds or supports trunk or limbs, but provides less than half the effort. 2-Substantial/Maximal Assistance-helper does MORE THAN HALF the effort. [place] l ifts or holds trunk or limbs and provides more than half the effort. 8-Aqgfdonfs-irrwth does ALL the effort. Patient does none of the effort to complete the activity. Or, the assistance of 2 or more helpers is required for the patient to complete the activity. If activity was not attempted, code reason: 7-Patient Refused. 9-Not Applicable-not attempted and the patient did not perform the activity before the current illness, exacerbation or injury. 10-Not Attempted due to Environmental Limitations-(lack of equipment, weather restraints, etc.). 88-Not Attempted due to Medical Conditions or Safety Concerns. Roll Left to Right (QC): 4 Sit to Lying (QC): 4 Sit to Stand (QC): 88 Chair/Hyt-pv-Ugxxi Xfer(QC): 4 Car Transfer (QC): 88 Gait Training Does the Patient Walk?: No and Walking Goal NOT indicated Walk 10 feet (QC): 88 Walk 50 ft with 2 Turns(QC): 88 Walk 150 ft (QC): 88 Walking 10ft/uneven surface-QC: 88 Wheelchair Training Does the Pt Use a Wheelchair?: Yes Distance: 50 Wheel 50 ft with 2 turns (QC): 4 Wheel 150 ft (QC): 88 Type of Wheelchair: Manual Stair Training 1 Step (curb) (QC): 88 4 Steps (QC): 88 12 Steps (QC): 88 Balance Picking up an Object (QC): 88 ADL-Treatment Eating (QC): 5 Oral Hygiene (QC): 5 Shower/Bathe Self (QC): 3 (per clinical judgement at seated level) Upper Body Dressing (QC): 4 Lower Body Dressing (QC): 4 On/Off Footwear (QC): 88 Toileting Hygiene (QC): 7 Assessment/Plan Assessment and Plan Assess & Plan/Chief Complaint Assessment: Skydiving accident Right femur fracture Left ankle fracture Hypertension 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 Chaney Anemia 7.8 on labs 05/26/21 and iron low so started on Venofer Plan: Monitor pain Monitor bowel function Aggressive PT and OT 05/26/21: Check iron and B12 Pain control 05/27/21: Monitor closely Venofer B12 05/28/2021: Supportive care Iron infusion B12 (1) Trauma (2) Closed right femoral fracture (3) Closed left ankle fracture RUDDY MEJIA DO May 28, 2021 06:06
[2021-05-28] MEDS: CYANOCOBALAMIN 1,000 MCG (VITAMIN B-12) TABLET PO SCH (06:27)
[2021-05-28 07:29] VITALS: BP 132/74
[2021-05-28] MEDS: lisINopril 40 MG (PRINIVIL) TABLET PO SCH (08:03)
[2021-05-28] MEDS: MELOXICAM 7.5 MG (MOBIC) TABLET PO SCH (08:04)
[2021-05-28] MEDS: PANTOPRAZOLE 20 MG TABLET (PROTONIX) PO SCH (08:05)
[2021-05-28] MEDS: FLUoxetine HCL 20 MG (PROzac) CAP PO SCH (08:05)
[2021-05-28] MEDS: DOCUSATE SODIUM 100 MG (COLACE) CAP PO SCH ×2 (08:05→21:36)
[2021-05-28] MEDS: SENNA W/DOCUSATE (SENOKOT S) TABLET PO SCH ×2 (08:05→21:36)
[2021-05-28] MEDS: ASPIRIN 325 MG (5 GR) TABLET PO SCH ×2 (08:05→17:33)
[2021-05-28] MEDS: VITAMIN D3 25 MCG (1,000 UNITS) TABLET PO SCH (08:06)
[2021-05-28] MEDS: HYDROCORTISONE 2.5% CREAM (ANUSOL-HC) 30 GM TOP SCH ×2 (08:08→21:36)
[2021-05-28] MEDS: polyethylene glycoL POWDER 17 GM (MIRALAX) PACK PO SCH (09:37)
--- NOTE | 2021-05-28 10:56 | Physical Therapy Daily Note ---
PT Daily Note-Current Subjective Patient in WC pre tx, agrees to PT, has no complaints of pain. Will be co- treating with OT due to poor patient mobility, strength, endurance, complicated weight restrictions, coordinate UE and LE during activity, safety and reduce risk of falls. Appearance Patient in WC post tx, will continue for a bit with OT. Mental Status Patient Orientation: Normal For Age Transfers SCALE: Activities may be completed with or without assistive devices. 7-Dfbhjlbqvc-jrkbpbs completes the activity by him/herself with no assistance from a helper. 5-Set-up or Clean-up Assistance-helper sets up or cleans up; patient completes activity. [place] assists only prior to or following the activity. 4-Supervision or Touching Assistance-helper provides verbal cues and/or touching/steadying and/or contact guard assistance as patient completes activity. Assistance may be provided throughout the activity or intermittently. 3-Partial/Moderate Assistance-helper does LESS THAN HALF the effort. [place] l ifts, holds or supports trunk or limbs, but provides less than half the effort. 2-Substantial/Maximal Assistance-helper does MORE THAN HALF the effort. [place] lifts or holds trunk or limbs and provides more than half the effort. 4-Ycqyromvy-fmbkus does ALL the effort. Patient does none of the effort to complete the activity. Or, the assistance of 2 or more helpers is required for t he patient to complete the activity. If activity was not attempted, code reason: 7-Patient Refused. 9-Not Applicable-not attempted and the patient did not perform the activity before the current illness, exacerbation or injury. 10-Not Attempted due to Environmental Limitations-(lack of equipment, weather restraints, etc.). 88-Not Attempted due to Medical Conditions or Safety Concerns. Chair/Suh-iy-Shvve Xfer(QC): 4 Sliding board SBA. Patient can place the board and take it out. Practiced transfer to therapy table, toilet, bedside commode, and car transfer machine. All performed with SBA. Weight Bearing Right Lower Extremity: Right Non Weight Bearing Left Lower Extremity: Left Non Weight Bearing Right shoulder non wt bearing unless at the side and internally rotated Wheelchair Training Does the Pt Use a Wheelchair?: Yes Wheel 50 ft with 2 turns (QC): 6 Wheel 150 ft (QC): 6 Type of Wheelchair: Manual 300', patient went up and down a ramp with independence Exercises seated abdominal trunk strengthening x20 Treatments transfers, WC mobility Assessment Current Status: Good Progress Patient performing very well with transfers, will not be co-treating after this. PT Short Term Goals Short Term Goals Time Frame: May 30, 2021 Roll Left & Right: 6 Sit to lyin Lying to sitting on side of be: 6 Sit to stand: 88 Chair/cwb-gq-hbihv transfer: 5 Toilet transfer: 5 Car transfer: 4 Walk 10 feet: 88 Walk 50 feet with two turns: 88 Walk 150 feet: 88 Walking 10ft on uneven surface: 88 1 step (curb): 88 4 steps: 88 12 steps: 88 Picking up objects: 88 Does pt use a wc or scooter: Yes Wheel 50ft w/2 turns: 6 Wheel 150 feet: 5 Type: Manual PT Mcc Goals Mcc Goals PT Mcc Goals Time Frame: Jun 02, 2021 Roll Left & Right (QC): 6 Sit to Lying (QC): 6 Lying-Sitting on Side/Bed(QC): 6 Sit to Stand (QC): 88 Chair/Kwv-te-Keurb Xfer(QC): 6 Toilet Transfer (QC): 6 Car Transfer (QC): 5 Does the Patient Walk: No and Walking Goal NOT indicated Walk 10 feet (QC): 88 Walk 50ft with 2 Turns (QC): 88 Walk 150 ft (QC): 88 Walking 10ft on Uneven Surface: 88 1 Step (curb) (QC): 88 4 Steps (QC): 88 12 Steps (QC): 88 Picking up an Object (QC): 88 Does the Pt use WC or Scooter?: Yes Wheel 50 feet with 2 turns (QC: 6 Type: Manual Wheel 150 feet: 6 Type: Manual PT Plan Problem List Problem List: Activity Tolerance, Functional Strength, Safety, Balance, Gait, Transfer, Bed Mobility, ROM Treatment/Plan Treatment Plan: Continue Plan of Care Treatment Plan: Bed Mobility, Education, Functional Activity Rey, Functional Strength, Safety, Therapeutic Exercise, Transfers Treatment Duration: Jun 02, 2021 Frequency: At least 5 of 7 days/Wk (IRF) Estimated Hrs Per Day: 1.5 hours per day Patient and/or Family Agrees t: Yes Safety Risks/Education Patient Education: Transfer Techniques, Correct Positioning, W/C Management, Safety Issues Teaching Recipient: Patient Teaching Methods: Demonstration, Discussion Response to Teaching: Reinforcement Needed Time/GCodes Time In: 1000 Time Out: 1100 Total Billed Treatment Time: 60 Total Billed Treatment 1 visit FA 60' co-treated with OT for 60' MACKENZIE MCALLITSER PT May 28, 2021 10:56
--- NOTE | 2021-05-28 11:43 | Occupational Ther Daily Note ---
OT Current Status-Daily Note Subjective Pt alert, sitting in w/c. Pt agrees to therapy. No c/o pain. Mental Status/Objective Patient Orientation: Person, Place, Time, Situation Attachments: IV, Knee Immobilizer ADL-Treatment OT/PT cotreat ([id number]), skills of 2 clinicians for skilled instruction of safe SB transfers to a variety of surfaces, B LE/UE exercises to adhere to precautions and w/c mobility. PT focusing on transfers, w/c mobility and B LE strengthening while OT focusing on functional transfers, B UE strengthening, Codman's exercises and w/c mobility. Pt had already gotten dressed and completed oral care before OT session. Pt states that his assisted with his shower yesterday. Pt demonstrating SBA for toilet, BSC and shower bench transfers using SB. Pt positions w/c and SB independently. Pt describes how he is able to hike pants up/down over hips while sitting, independently. Pt states that his will be assisting him with things that he is not able to complete. W/c mobility independent throughout hospital and up/down ramp. Therapy Code Descriptions/Definitions Functional [place] Measure: 0=Not Assessed/NA 4=Minimal Assistance 1=Total Assistance 5=Supervision or Setup 2=Maximal Assistance 6=Modified [place] 3=Moderate Assistance 7=Complete IndependenceSCALE: Activities may be completed with or without assistive devices. 7-Oinkjxufqb-bfluqvx completes the activity by him/herself with no assistance from a helper. 5-Set-up or Clean-up Assistance-helper sets up or cleans up; patient completes activity. [place] assists only prior to or following the activity. 4-Supervision or Touching Assistance-helper provides verbal cues and/or touching/steadying and/or contact guard assistance as patient completes activity. Assistance may be provided throughout the activity or intermittently. 3-Partial/Moderate Assistance-helper does LESS THAN HALF the effort. [place] lifts, holds or supports trunk or limbs, but provides less than half the effort. 2-Substantial/Maximal Assistance-helper does MORE THAN HALF the effort. [place] l ifts or holds trunk or limbs and provides more than half the effort. 2-Wfbyznnzy-iwloml does ALL the effort. Patient does none of the effort to complete the activity. Or, the assistance of 2 or more helpers is required for the patient to complete the activity. If activity was not attempted, code reason: 7-Patient Refused. 9-Not Applicable-not attempted and the patient did not perform the activity before the current illness, exacerbation or injury. 10-Not Attempted due to Environmental Limitations-(lack of equipment, weather restraints, etc.). 88-Not Attempted due to Medical Conditions or Safety Concerns. Eating (QC): 6 (per clinical judgment) Oral Hygiene (QC): 6 (per clinical judgment) Toilet Transfer (QC): 4 Other Treatment Pt completed wrist flex, wrist ext, rows and tricep extensions with light resistance theraband 1 set 15 reps. Skilled instruction for correct technique and to adhere to shldr precautions. Codman's educated and pt requires verbal cue for correct technique. After session, pt sitting in recliner with call light/phone in reach. All needs met in room. Education OT Patient Education: Exercise program, Modified ADL techniques, Transfer techniques Teaching Recipient: Patient Teaching Methods: Demonstration, Discussion Response to Teaching: Verbalize Understanding, Return Demonstration, Reinforcement Needed OT Short Term Goals Short Term Goals Time Frame: Jun 01, 2021 Eatin Oral hygiene: 6 Toileting hygiene: 3 Shower/bathe self: 4 Upper body dressin Lower body dressin Putting on/taking off footwear: 3 OT Shelter Goals Systems Test Technician Goals Time Frame: Jun 06, 2021 Eating (QC): 6 Oral Hygiene (QC): 6 Toileting Hygiene (QC): 5 Shower/Bathe Self (QC): 5 Upper Body Dressing (QC): 6 Lower Body Dressing (QC): 5 On/Off Footwear (QC): 5 1=Demonstrate adherence to instructed precautions during ADL tasks. 2=Patient will verbalize/demonstrate understanding of assistive devices/modifications for ADL. 3=Patient will improve strength/tolerance for activity to enable patient to perform ADL's. OT Education/Plan Problem List/Assessment Assessment: Decreased UE Strength, Impaired Self-Care Skills Discharge Recommendations Plan/Recommendations: Continue POC Treatment Plan/Plan of Care Patient would benefit from OT for education, treatment and training to promote independence in ADL's, mobility, safety and/or upper extremity function for ADL's. Plan of Care: ADL Retraining, Functional Mobility, Group Exercise/Act as Ind, Orthotic Fitting/Training, UE Funct Exercise/Act, W/C Management Training Treatment Duration: Jun 06, 2021 Frequency: At least 5 of 7 days/Wk (IRF) Estimated Hrs Per Day: 1.5 hours per day Agreement: Yes Rehab Potential: Good Time/GCodes Start Time: 10:00 Stop Time: 11:15 Total Time Billed (hr/min): 75 Billed Treatment Time 1 visit-FA 4 (60 min) EX 1 (15 min) co-treat with PT [id number], individual [id number] ELZA PERDOMO May 28, 2021 11:43
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
--- NOTE | 2021-05-28 15:41 | Physical Therapy Daily Note ---
PT Daily Note-Current Subjective Pt reports he is making good progress. Transfers SCALE: Activities may be completed with or without assistive devices. 0-Boxthxeyst-inanhoi completes the activity by him/herself with no assistance from a helper. 5-Set-up or Clean-up Assistance-helper sets up or cleans up; patient completes activity. [place] assists only prior to or following the activity. 4-Supervision or Touching Assistance-helper provides verbal cues and/or touching/steadying and/or contact guard assistance as patient completes activity. Assistance may be provided throughout the activity or intermittently. 3-Partial/Moderate Assistance-helper does LESS THAN HALF the effort. [place] lifts, holds or supports trunk or limbs, but provides less than half the effort. 2-Substantial/Maximal Assistance-helper does MORE THAN HALF the effort. [place] lifts or holds trunk or limbs and provides more than half the effort. 9-Qtrwyqphj-ytgcsx does ALL the effort. Patient does none of the effort to complete the activity. Or, the assistance of 2 or more helpers is required for the patient to complete the activity. If activity was not attempted, code reason: 7-Patient Refused. 9-Not Applicable-not attempted and the patient did not perform the activity before the current illness, exacerbation or injury. 10-Not Attempted due to Environmental Limitations-(lack of equipment, weather restraints, etc.). 88-Not Attempted due to Medical Conditions or Safety Concerns. Weight Bearing Right Lower Extremity: Right Non Weight Bearing Left Lower Extremity: Left Non Weight Bearing Right shoulder non wt bearing unless at the side and internally rotated Exercises Supine Ex: Bridging, Ankle pumps, Quad Set, Glut sets, Heel Slides, Knee to chest, Short Arc Quads, Straight leg raise, Hip abd/add Supine Reps: 30 used manual resistance where tolerated. Performed passive hip flexor stretch with leg hanging off the side of the bed. Assessment Current Status: Good Progress Pt gaining strength and functional mobility. He will benefit from continued therapy to address mobility, strength, and family training. PT Short Term Goals Short Term Goals Time Frame: May 30, 2021 Roll Left & Right: 6 Sit to lyin Lying to sitting on side of be: 6 Sit to stand: 88 Chair/xxd-wy-aaiuk transfer: 5 Toilet transfer: 5 Car transfer: 4 Walk 10 feet: 88 Walk 50 feet with two turns: 88 Walk 150 feet: 88 Walking 10ft on uneven surface: 88 1 step (curb): 88 4 steps: 88 12 steps: 88 Picking up objects: 88 Does pt use a wc or scooter: Yes Wheel 50ft w/2 turns: 6 Wheel 150 feet: 5 Type: Manual PT Intermediate Goals Marine Gear Keeper Goals PT Intermediate Goals Time Frame: Jun 02, 2021 Roll Left & Right (QC): 6 Sit to Lying (QC): 6 Lying-Sitting on Side/Bed(QC): 6 Sit to Stand (QC): 88 Chair/Naw-wy-Bsees Xfer(QC): 6 Toilet Transfer (QC): 6 Car Transfer (QC): 5 Does the Patient Walk: No and Walking Goal NOT indicated Walk 10 feet (QC): 88 Walk 50ft with 2 Turns (QC): 88 Walk 150 ft (QC): 88 Walking 10ft on Uneven Surface: 88 1 Step (curb) (QC): 88 4 Steps (QC): 88 12 Steps (QC): 88 Picking up an Object (QC): 88 Does the Pt use WC or Scooter?: Yes Wheel 50 feet with 2 turns (QC: 6 Type: Manual Wheel 150 feet: 6 Type: Manual PT Plan Treatment/Plan Treatment Plan: Continue Plan of Care Treatment Plan: Bed Mobility, Education, Functional Activity [place], Functional Strength, Safety, Therapeutic Exercise, Transfers Treatment Duration: Jun 02, 2021 Frequency: At least 5 of 7 days/Wk (IRF) Estimated Hrs Per Day: 1.5 hours per day Patient and/or Family Agrees t: Yes Time/GCodes Time In: 1500 Time Out: 1520 Total Billed Treatment Time: 20 Total Billed Treatment visit, exercise 20 min FADIA GILMORE PT May 28, 2021 15:41
[2021-05-28 19:45] VITALS: BP 112/71
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
[2021-05-29 07:30] VITALS: BP 122/65
--- NOTE | 2021-05-29 08:50 | Physical Therapy Daily Note ---
PT Daily Note-Current Subjective Patient in restroom pre tx, agrees to PT, has slight pain in right hip. His is able to steady the WC for the transfer from toilet to WC using the sliding board and he does it on his own. Patient now performs a sliding board transfer bed <-> chair on his own independently, nurse notified that he can do this without assist. Appearance Patient in WC in room post tx with present. Mental Status Patient Orientation: Normal For Age right leg brace Transfers SCALE: Activities may be completed with or without assistive devices. 1-Cfjbxypvdu-iweqsdn completes the activity by him/herself with no assistance from a helper. 5-Set-up or Clean-up Assistance-helper sets up or cleans up; patient completes activity. [place] assists only prior to or following the activity. 4-Supervision or Touching Assistance-helper provides verbal cues and/or touching/steadying and/or contact guard assistance as patient completes activity. Assistance may be provided throughout the activity or intermittently. 3-Partial/Moderate Assistance-helper does LESS THAN HALF the effort. [place] lifts, holds or supports trunk or limbs, but provides less than half the effort. 2-Substantial/Maximal Assistance-helper does MORE THAN HALF the effort. [place] lifts or holds trunk or limbs and provides more than half the effort. 8-Xynmecedg-zklpyk does ALL the effort. Patient does none of the effort to complete the activity. Or, the assistance of 2 or more helpers is required for the patient to complete the activity. If activity was not attempted, code reason: 7-Patient Refused. 9-Not Applicable-not attempted and the patient did not perform the activity before the current illness, exacerbation or injury. 10-Not Attempted due to Environmental Limitations-(lack of equipment, weather restraints, etc.). 88-Not Attempted due to Medical Conditions or Safety Concerns. Roll Left & Right (QC): 6 Sit to Lying (QC): 6 Lying to Sitting/Side of Bed(Q: 6 Chair/Kzi-ab-Ebpso Xfer(QC): 6 Toilet Transfer (QC): 4 Weight Bearing Right Lower Extremity: Right Non Weight Bearing Left Lower Extremity: Left Non Weight Bearing Right shoulder non wt bearing unless at the side and internally rotated Wheelchair Training Does the Pt Use a Wheelchair?: Yes Wheel 50 ft with 2 turns (QC): 6 Wheel 150 ft (QC): 6 Type of Wheelchair: Manual 500' Exercises Supine Ex: Ankle pumps, Quad Set, Glut sets, Heel Slides, Short Arc Quads, Straight leg raise, Hip abd/add Supine Reps: 20 Seated Therapy Exercises: Ankle pumps, Hip flexion, Hip abd/add (with ball and RTB) Seated Reps: 20 LAQ alternating for 5 min Treatments LE ROM and strengthening, transfer training, WC mobility Assessment Current Status: Good Progress patient is now independent with sliding board transfers but needs assist to steady WC or transfer board for toilet transfers because the board can slip on the slick surface of the toilet. Patient is probably to the point now that he can perform the transfer without the board, using just his arms. PT Short Term Goals Short Term Goals Time Frame: May 30, 2021 Roll Left & Right: 6 Sit to lyin Lying to sitting on side of be: 6 Sit to stand: 88 Chair/jin-ml-pwqgd transfer: 5 Toilet transfer: 5 Car transfer: 4 Walk 10 feet: 88 Walk 50 feet with two turns: 88 Walk 150 feet: 88 Walking 10ft on uneven surface: 88 1 step (curb): 88 4 steps: 88 12 steps: 88 Picking up objects: 88 Does pt use a wc or scooter: Yes Wheel 50ft w/2 turns: 6 Wheel 150 feet: 5 Type: Manual PT Halfway Goals Supervisor Blasting Goals PT Supervisor Blasting Goals Time Frame: Jun 02, 2021 Roll Left & Right (QC): 6 Sit to Lying (QC): 6 Lying-Sitting on Side/Bed(QC): 6 Sit to Stand (QC): 88 Chair/Ohi-fz-Jvxhq Xfer(QC): 6 Toilet Transfer (QC): 6 Car Transfer (QC): 5 Does the Patient Walk: No and Walking Goal NOT indicated Walk 10 feet (QC): 88 Walk 50ft with 2 Turns (QC): 88 Walk 150 ft (QC): 88 Walking 10ft on Uneven Surface: 88 1 Step (curb) (QC): 88 4 Steps (QC): 88 12 Steps (QC): 88 Picking up an Object (QC): 88 Does the Pt use WC or Scooter?: Yes Wheel 50 feet with 2 turns (QC: 6 Type: Manual Wheel 150 feet: 6 Type: Manual PT Plan Problem List Problem List: Activity Tolerance, Functional Strength, Safety, Balance, Gait, Transfer, ROM Treatment/Plan Treatment Plan: Continue Plan of Care Treatment Plan: Bed Mobility, Education, Functional Activity Rey, Functional Strength, Safety, Therapeutic Exercise, Transfers Treatment Duration: Jun 02, 2021 Frequency: At least 5 of 7 days/Wk (IRF) Estimated Hrs Per Day: 1.5 hours per day Patient and/or Family Agrees t: Yes Safety Risks/Education Patient Education: Transfer Techniques, Reviewed Precautions, Correct Positioning, W/C Management, Safety Issues Teaching Recipient: Patient Teaching Methods: Demonstration, Discussion Response to Teaching: Reinforcement Needed Time/GCodes Time In: 0800 Time Out: 0900 Total Billed Treatment Time: 60 Total Billed Treatment 1 visit FA 30' EX 30' MACKENZIE MCALLISTER PT May 29, 2021 08:50
[2021-05-29] MEDS: VITAMIN D3 25 MCG (1,000 UNITS) TABLET PO SCH (08:56)
[2021-05-29] MEDS: lisINopril 40 MG (PRINIVIL) TABLET PO SCH (08:56)
[2021-05-29] MEDS: SENNA W/DOCUSATE (SENOKOT S) TABLET PO SCH ×2 (08:56→21:32)
[2021-05-29] MEDS: PANTOPRAZOLE 20 MG TABLET (PROTONIX) PO SCH (08:56)
[2021-05-29] MEDS: CYANOCOBALAMIN 1,000 MCG (VITAMIN B-12) TABLET PO SCH (08:56)
[2021-05-29] MEDS: FLUoxetine HCL 20 MG (PROzac) CAP PO SCH (08:56)
[2021-05-29] MEDS: DOCUSATE SODIUM 100 MG (COLACE) CAP PO SCH ×2 (08:57→21:31)
[2021-05-29] MEDS: MELOXICAM 7.5 MG (MOBIC) TABLET PO SCH (08:57)
[2021-05-29] MEDS: ASPIRIN 325 MG (5 GR) TABLET PO SCH ×2 (08:57→17:07)
[2021-05-29] MEDS: HYDROCORTISONE 2.5% CREAM (ANUSOL-HC) 30 GM TOP SCH ×2 (08:58→21:29)
[2021-05-29] MEDS ORDERED: IRON SUCROSE 200 MG/10 ML (VENOFER) VIAL IV SCH (09:00)
[2021-05-29] MEDS ORDERED: IRON SUCROSE INJECTION 200 MG in NS (IVPB) 100 ML IV SCH (10:00)
[2021-05-29] MEDS: polyethylene glycoL POWDER 17 GM (MIRALAX) PACK PO SCH (10:04)
--- NOTE | 2021-05-29 10:46 | Occupational Ther Daily Note ---
OT Current Status-Daily Note Subjective Pt alert, lying in bed. Pt agrees to therapy. No c/o pain at this time. Mental Status/Objective Patient Orientation: Person, Place, Time, Situation Attachments: Knee Immobilizer ADL-Treatment 1st session ([id number]): Pt declines shower stating that he will have one at night and that his will assist. Per report from and pt, pt is able to complete shower by himself sitting on shower bench. Pt stated that his orthopedic physician stated that he is able to take off all dressings on B LE to bath then redress after shower. Supine to EOB independent with HOB raised. Pt then simulated lower body dressing and was able to complete by self. Pt able to complete upper body dressing by self. PT has allowed pt to complete transfers without supervision and without SB for most transfers. Pt is independent with transfer using SB and without. Educated pt on tub bench transfers then was able to complete transfer independently. Discussed toilet transfers in home environment, will address more thoroughly during next session. Therapy Code Descriptions/Definitions Functional [place] Measure: 0=Not Assessed/NA 4=Minimal Assistance 1=Total Assistance 5=Supervision or Setup 2=Maximal Assistance 6=Modified [place] 3=Moderate Assistance 7=Complete IndependenceSCALE: Activities may be completed with or without assistive devices. 2-Oznsgnnrjl-lmrbbji completes the activity by him/herself with no assistance from a helper. 5-Set-up or Clean-up Assistance-helper sets up or cleans up; patient completes activity. [place] assists only prior to or following the activity. 4-Supervision or Touching Assistance-helper provides verbal cues and/or touching/steadying and/or contact guard assistance as patient completes activity. Assistance may be provided throughout the activity or intermittently. 3-Partial/Moderate Assistance-helper does LESS THAN HALF the effort. [place] lifts, holds or supports trunk or limbs, but provides less than half the effort. 2-Substantial/Maximal Assistance-helper does MORE THAN HALF the effort. [place] lifts or holds trunk or limbs and provides more than half the effort. 6-Gdsmqzoiq-rsfemc does ALL the effort. Patient does none of the effort to complete the activity. Or, the assistance of 2 or more helpers is required for the patient to complete the activity. If activity was not attempted, code reason: 7-Patient Refused. 9-Not Applicable-not attempted and the patient did not perform the activity before the current illness, exacerbation or injury. 10-Not Attempted due to Environmental Limitations-(lack of equipment, weather restraints, etc.). 88-Not Attempted due to Medical Conditions or Safety Concerns. Oral Hygiene (QC): 6 (per clinical judgment) Upper Body Dressing (QC): 5 Lower Body Dressing (QC): 5 Other Treatment 1st session([id number]) Pt propelled w/c independently to therapy gym. Arm bike completed for 15 min at 20 [place] resistance to increase strength and activity tolerance. Pt stated that B shldrs were tired, no pain. After therapy, pt sitting in w/c with call light/phone in reach. All needs met in room. 2nd session([id number]) Simulated home environment for toilet transfer. Pt able to complete with supervision for safety. Pt then completed B UE exercises with 3# wt,3 sets 10 reps of bicep curls and low rows to adhere to shldr precautions, wrist flex, wrist ext, wrist uln/rad deviation. Skilled instruction and monitoring of correct technique. After session, pt sitting in recliner with ca ll light/phone in reach. All needs met in room. OT Short Term Goals Short Term Goals Time Frame: Jun 01, 2021 Eatin Oral hygiene: 6 Toileting hygiene: 3 Shower/bathe self: 4 Upper body dressin Lower body dressin Putting on/taking off footwear: 3 OT Chcf Goals Chcf Goals Time Frame: Jun 06, 2021 Eating (QC): 6 Oral Hygiene (QC): 6 Toileting Hygiene (QC): 5 Shower/Bathe Self (QC): 5 Upper Body Dressing (QC): 6 Lower Body Dressing (QC): 5 On/Off Footwear (QC): 5 1=Demonstrate adherence to instructed precautions during ADL tasks. 2=Patient will verbalize/demonstrate understanding of assistive devic es/modifications for ADL. 3=Patient will improve strength/tolerance for activity to enable patient to perform ADL's. OT Education/Plan Problem List/Assessment Assessment: Impaired Self-Care Skills Discharge Recommendations Plan/Recommendations: Continue POC Treatment Plan/Plan of Care Patient would benefit from OT for education, treatment and training to promote independence in ADL's, mobility, safety and/or upper extremity function for ADL's. Plan of Care: ADL Retraining, Functional Mobility, Group Exercise/Act as Ind, Orthotic Fitting/Training, UE Funct Exercise/Act, W/C Management Training Treatment Duration: Jun 06, 2021 Frequency: At least 5 of 7 days/Wk (IRF) Estimated Hrs Per Day: 1.5 hours per day Agreement: Yes Rehab Potential: Good Time/GCodes Start Time: 09:45 (1255) Stop Time: 10:45 (1325) Total Time Billed (hr/min): 90 Billed Treatment Time 1 visit([id number]) FA 3 (45 min) EX 1 (15 min) 1 visit([id number]) FA 1 (20 min) EX 1 (10 min) ELZA PERDOMO May 29, 2021 10:46
[2021-05-29] MEDS ORDERED: ASPI81TA16 PO (11:49)
[2021-05-29] MEDS ORDERED: NAPR220T66 PO (11:52)
[2021-05-29] MEDS ORDERED: ASCO500C17 PO (12:18)
[2021-05-29] MEDS ORDERED: QUERCETIN (12:19)
[2021-05-29] MEDS ORDERED: QUERCETIN PO (12:21)
--- NOTE | 2021-05-29 14:04 | Physical Therapy Daily Note ---
PT Daily Note-Current Subjective Patient in WC at bedside pre tx, agrees to PT, voices no complaints of pain. Appearance Patient in WC at bedside post tx, has nurse call, angelica, phone Mental Status Patient Orientation: Normal For Age right side leg brace Transfers SCALE: Activities may be completed with or without assistive devices. 3-Ydefpqnbvh-hlhslfm completes the activity by him/herself with no assistance from a helper. 5-Set-up or Clean-up Assistance-helper sets up or cleans up; patient completes activity. [place] assists only prior to or following the activity. 4-Supervision or Touching Assistance-helper provides verbal cues and/or touching/steadying and/or contact guard assistance as patient completes activity. Assistance may be provided throughout the activity or intermittently. 3-Partial/Moderate Assistance-helper does LESS THAN HALF the effort. [place] lifts, holds or supports trunk or limbs, but provides less than half the effort. 2-Substantial/Maximal Assistance-helper does MORE THAN HALF the effort. [place] lifts or holds trunk or limbs and provides more than half the effort. 7-Dlrrgaked-oxkydx does ALL the effort. Patient does none of the effort to complete the activity. Or, the assistance of 2 or more helpers is required for the patient to complete the activity. If activity was not attempted, code reason: 7-Patient Refused. 9-Not Applicable-not attempted and the patient did not perform the activity before the current illness, exacerbation or injury. 10-Not Attempted due to Environmental Limitations-(lack of equipment, weather restraints, etc.). 88-Not Attempted due to Medical Conditions or Safety Concerns. Chair/Ics-ms-Xgprc Xfer(QC): 6 Weight Bearing Right Lower Extremity: Right Non Weight Bearing Left Lower Extremity: Left Non Weight Bearing Right shoulder non wt bearing unless at the side and internally rotated Wheelchair Training Does the Pt Use a Wheelchair?: Yes Wheel 50 ft with 2 turns (QC): 6 Type of Wheelchair: Manual 120'x2 Exercises Supine Ex: Ankle pumps (only RLE), Quad Set, Glut sets, Heel Slides, Short Arc Quads, Straight leg raise, Hip abd/add Supine Reps: 20 Seated Therapy Exercises: Hip flexion, Hip abd/add (with ball and RTB) Seated Reps: 20 LAQ alternating for 5 min Treatments LE strengthening, transfers, WC mob Assessment Current Status: Fair Progress good progress with LE strength despite both legs being NWB PT Short Term Goals Short Term Goals Time Frame: May 30, 2021 Roll Left & Right: 6 Sit to lyin Lying to sitting on side of be: 6 Sit to stand: 88 Chair/qgl-of-bkzuf transfer: 5 Toilet transfer: 5 Car transfer: 4 Walk 10 feet: 88 Walk 50 feet with two turns: 88 Walk 150 feet: 88 Walking 10ft on uneven surface: 88 1 step (curb): 88 4 steps: 88 12 steps: 88 Picking up objects: 88 Does pt use a wc or scooter: Yes Wheel 50ft w/2 turns: 6 Wheel 150 feet: 5 Type: Manual PT Senior Living Goals Licensed And Certified Midwife Goals PT Senior Living Goals Time Frame: Jun 02, 2021 Roll Left & Right (QC): 6 Sit to Lying (QC): 6 Lying-Sitting on Side/Bed(QC): 6 Sit to Stand (QC): 88 Chair/Kmx-ij-Vustg Xfer(QC): 6 Toilet Transfer (QC): 6 Car Transfer (QC): 5 Does the Patient Walk: No and Walking Goal NOT indicated Walk 10 feet (QC): 88 Walk 50ft with 2 Turns (QC): 88 Walk 150 ft (QC): 88 Walking 10ft on Uneven Surface: 88 1 Step (curb) (QC): 88 4 Steps (QC): 88 12 Steps (QC): 88 Picking up an Object (QC): 88 Does the Pt use WC or Scooter?: Yes Wheel 50 feet with 2 turns (QC: 6 Type: Manual Wheel 150 feet: 6 Type: Manual PT Plan Problem List Problem List: Activity Tolerance, Functional Strength, Safety, Balance, Gait, Transfer, Bed Mobility, ROM Treatment/Plan Treatment Plan: Continue Plan of Care Treatment Plan: Bed Mobility, Education, Functional Activity Rey, Functional Strength, Safety, Therapeutic Exercise, Transfers Treatment Duration: Jun 02, 2021 Frequency: At least 5 of 7 days/Wk (IRF) Estimated Hrs Per Day: 1.5 hours per day Patient and/or Family Agrees t: Yes Safety Risks/Education Patient Education: Transfer Techniques, Correct Positioning, W/C Management, Safety Issues Teaching Recipient: Patient Teaching Methods: Demonstration, Discussion Response to Teaching: Reinforcement Needed Time/GCodes Time In: 1330 Time Out: 1400 Total Billed Treatment Time: 30 Total Billed Treatment 1 visit EX 30' MACKENZIE MCALLISTER PT May 29, 2021 14:03
[2021-05-29 20:00] VITALS: BP 145/69
[2021-05-29] MEDS: diphenhydrAMINE 25 MG TAB (BENADRYL) PO PRN (21:28)
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
[2021-05-30] MEDS: CYANOCOBALAMIN 1,000 MCG (VITAMIN B-12) TABLET PO SCH (06:42)
[2021-05-30 07:48] VITALS: BP 119/61
--- NOTE | 2021-05-30 08:53 | Physical Therapy Daily Note ---
PT Daily Note-Current Subjective Patient in WC at bedside pre tx, agrees to PT, has no complaints of pain but experiences some pain in right hip with LE exercise Appearance Patient in WC at bedside post tx with nurse call, phone, tray, all needs met. Mental Status Patient Orientation: Normal For Age left leg brace Transfers SCALE: Activities may be completed with or without assistive devices. 4-Fdzplevqkc-kcltsbx completes the activity by him/herself with no assistance from a helper. 5-Set-up or Clean-up Assistance-helper sets up or cleans up; patient completes activity. [place] assists only prior to or following the activity. 4-Supervision or Touching Assistance-helper provides verbal cues and/or touching/steadying and/or contact guard assistance as patient completes activity. Assistance may be provided throughout the activity or intermittently. 3-Partial/Moderate Assistance-helper does LESS THAN HALF the effort. [place] lifts, holds or supports trunk or limbs, but provides less than half the effort. 2-Substantial/Maximal Assistance-helper does MORE THAN HALF the effort. [place] lifts or holds trunk or limbs and provides more than half the effort. 1-Oxjzheqvi-pwfano does ALL the effort. Patient does none of the effort to complete the activity. Or, the assistance of 2 or more helpers is required for the patient to complete the activity. If activity was not attempted, code reason: 7-Patient Refused. 9-Not Applicable-not attempted and the patient did not perform the activity before the current illness, exacerbation or injury. 10-Not Attempted due to Environmental Limitations-(lack of equipment, weather restraints, etc.). 88-Not Attempted due to Medical Conditions or Safety Concerns. Roll Left & Right (QC): 6 Sit to Lying (QC): 6 Lying to Sitting/Side of Bed(Q: 6 Sit to Stand (QC): 88 Chair/Saz-cf-Buypd Xfer(QC): 6 Toilet Transfer (QC): 6 Car Transfer (QC): 4 Patient performs rolling and supine <-> sit with independence, transfers with or without a sliding board with independence, car transfer SBA. Weight Bearing Right Lower Extremity: Right Non Weight Bearing Left Lower Extremity: Left Non Weight Bearing Right shoulder non wt bearing unless at the side and internally rotated Gait Training Walk 10 feet (QC): 88 Walk 50 ft with 2 Turns(QC): 88 Walk 150 ft (QC): 88 Walking 10ft/uneven surface-QC: 88 Wheelchair Training Does the Pt Use a Wheelchair?: Yes Wheel 50 ft with 2 turns (QC): 6 Wheel 150 ft (QC): 6 Type of Wheelchair: Manual 500' Stair Training 1 Step (curb) (QC): 88 4 Steps (QC): 88 12 Steps (QC): 88 Balance Picking up an Object (QC): 9 Exercises Supine Ex: Ankle pumps, Quad Set, Glut sets, Heel Slides, Short Arc Quads, Straight leg raise, Hip abd/add Supine Reps: 20 Seated Therapy Exercises: Hip flexion, Hip abd/add (with ball and RTB) Seated Reps: 20 LAQ alternating for 5 min NuStep Minutes: 15 NuStep Workload: 1 (No resistance in order to comply with NWB in legs, used arms to do ROM on legs) Treatments bed mobility and transfers, WC mobility, LE strengthening and ROM Assessment Current Status: Fair Progress mostly independent with transfers but needs SBA for a car transfer. PT Short Term Goals Short Term Goals Time Frame: May 30, 2021 Roll Left & Right: 6 Sit to lyin Lying to sitting on side of be: 6 Sit to stand: 88 Chair/ixr-na-ycord transfer: 5 Toilet transfer: 5 Car transfer: 4 Walk 10 feet: 88 Walk 50 feet with two turns: 88 Walk 150 feet: 88 Walking 10ft on uneven surface: 88 1 step (curb): 88 4 steps: 88 12 steps: 88 Picking up objects: 88 Does pt use a wc or scooter: Yes Wheel 50ft w/2 turns: 6 Wheel 150 feet: 5 Type: Manual PT Care Navigator Goals Penitentiary Goals PT Care Navigator Goals Time Frame: Jun 02, 2021 Roll Left & Right (QC): 6 Sit to Lying (QC): 6 Lying-Sitting on Side/Bed(QC): 6 Sit to Stand (QC): 88 Chair/Wus-zh-Ttqoe Xfer(QC): 6 Toilet Transfer (QC): 6 Car Transfer (QC): 5 Does the Patient Walk: No and Walking Goal NOT indicated Walk 10 feet (QC): 88 Walk 50ft with 2 Turns (QC): 88 Walk 150 ft (QC): 88 Walking 10ft on Uneven Surface: 88 1 Step (curb) (QC): 88 4 Steps (QC): 88 12 Steps (QC): 88 Picking up an Object (QC): 88 Does the Pt use WC or Scooter?: Yes Wheel 50 feet with 2 turns (QC: 6 Type: Manual Wheel 150 feet: 6 Type: Manual PT Plan Problem List Problem List: Activity Tolerance, Functional Strength, Safety, Balance, Gait, Transfer, Bed Mobility, ROM Treatment/Plan Treatment Plan: Continue Plan of Care Treatment Plan: Bed Mobility, Education, Functional Activity Rey, Functional Strength, Safety, Therapeutic Exercise, Transfers Treatment Duration: Jun 02, 2021 Frequency: At least 5 of 7 days/Wk (IRF) Estimated Hrs Per Day: 1.5 hours per day Patient and/or Family Agrees t: Yes Safety Risks/Education Patient Education: Transfer Techniques, Reviewed Precautions, Correct Positioning, W/C Management, Safety Issues Teaching Recipient: Patient Teaching Methods: Demonstration, Discussion Response to Teaching: Reinforcement Needed Time/GCodes Time In: 0800 Time Out: 0900 Total Billed Treatment Time: 60 Total Billed Treatment 1 visit EX 30' FA 30' MACKENZIE MCALLISTER PT May 30, 2021 08:53
[2021-05-30] MEDS: VITAMIN D3 25 MCG (1,000 UNITS) TABLET PO SCH (09:12)
[2021-05-30] MEDS: SENNA W/DOCUSATE (SENOKOT S) TABLET PO SCH (09:12)
[2021-05-30] MEDS: PANTOPRAZOLE 20 MG TABLET (PROTONIX) PO SCH (09:12)
[2021-05-30] MEDS: FLUoxetine HCL 20 MG (PROzac) CAP PO SCH (09:12)
[2021-05-30] MEDS: lisINopril 40 MG (PRINIVIL) TABLET PO SCH (09:12)
[2021-05-30] MEDS: DOCUSATE SODIUM 100 MG (COLACE) CAP PO SCH (09:13)
[2021-05-30] MEDS: ASPIRIN 325 MG (5 GR) TABLET PO SCH (09:13)
[2021-05-30] MEDS: MELOXICAM 7.5 MG (MOBIC) TABLET PO SCH (09:13)
[2021-05-30] MEDS: polyethylene glycoL POWDER 17 GM (MIRALAX) PACK PO SCH (09:23)
[2021-05-30] MEDS: HYDROCORTISONE 2.5% CREAM (ANUSOL-HC) 30 GM TOP SCH (09:37)
[2021-05-30] MEDS: ACETAMINOPHEN 500 MG TAB (TYLENOL) PO PRN (10:43)
--- NOTE | 2021-05-30 10:47 | Occupational Ther Daily Note ---
OT Current Status-Daily Note Subjective Pt alert, sitting in w/c. Pt agrees to therapy. Pt c/o pain during OT session, reported to nrsg. Nrsg to bring pain meds at 1045. Mental Status/Objective Patient Orientation: Person, Place, Time, Situation Attachments: IV, Knee Immobilizer ADL-Treatment ADLs per pt/ report and clinical judgment. Pt is set up for dressing then is able to complete all dressing by self in sitting. Independent with modified transfers with/without SB, present if needed. Sitting on shower bench, pt able to reach all areas to cleanse, rinse, dry. Will need tub transfer bench for home use. Pt able to transfer on/off toilet without SB independently and complete toileting sitting on toilet independently. Oral care and eating independently. Therapy Code Descriptions/Definitions Functional [place] Measure: 0=Not Assessed/NA 4=Minimal Assistance 1=Total Assistance 5=Supervision or Setup 2=Maximal Assistance 6=Modified [place] 3=Moderate Assistance 7=Complete IndependenceSCALE: Activities may be completed with or without assistive devices. 1-Phdytfvmkn-uxqnpqt completes the activity by him/herself with no assistance from a helper. 5-Set-up or Clean-up Assistance-helper sets up or cleans up; patient completes activity. [place] assists only prior to or following the activity. 4-Supervision or Touching Assistance-helper provides verbal cues and/or touching/steadying and/or contact guard assistance as patient completes activity. Assistance may be provided throughout the activity or intermittently. 3-Partial/Moderate Assistance-helper does LESS THAN HALF the effort. [place] lifts, holds or supports trunk or limbs, but provides less than half the effort. 2-Substantial/Maximal Assistance-helper does MORE THAN HALF the effort. [place] lifts or holds trunk or limbs and provides more than half the effort. 5-Jxzkjsbod-bzilwc does ALL the effort. Patient does none of the effort to complete the activity. Or, the assistance of 2 or more helpers is required for the patient to complete the activity. If activity was not attempted, code reason: 7-Patient Refused. 9-Not Applicable-not attempted and the patient did not perform the activity before the current illness, exacerbation or injury. 10-Not Attempted due to Environmental Limitations-(lack of equipment, weather restraints, etc.). 88-Not Attempted due to Medical Conditions or Safety Concerns. Eating (QC): 6 Oral Hygiene (QC): 6 Shower/Bathe Self (QC): 6 Upper Body Dressing (QC): 5 Lower Body Dressing (QC): 5 On/Off Footwear: 5 Toileting Hygiene (QC): 6 Toilet Transfer (QC): 6 Other Treatment Pt transferred onto bed from hospital w/c then from bed to personal w/c independently. Pt propelled w/c to therapy gym to complete B UE exercises to increase strength and activity tolerance for daily functional tasks. Completed exercises that adheres to B shldr precautions with skilled instruction for technique and modifications. Arm bike 10 min at 20 denton resistance. Dowel ricarda exercises (20 reps) working on bicep and tricep strengthening with light resistance. 2# wt for wrist flex/ext/uln dev/rad dev 3 sets 10 reps. Medium resistance theraputty to increase title clerk and pinch. Pt educated on putting on/taking off foot pedals on personal w/c. After session, reported to nrsg that pt was going to 1st floor. All needs met. OT Short Term Goals Short Term Goals Time Frame: Jun 01, 2021 Eatin Oral hygiene: 6 Toileting hygiene: 3 Shower/bathe self: 4 Upper body dressin Lower body dressin Putting on/taking off footwear: 3 OT Skilled Nursing Goals Skilled Nursing Goals Time Frame: Jun 06, 2021 Eating (QC): 6 (met) Oral Hygiene (QC): 6 (met) Toileting Hygiene (QC): 5 (met) Shower/Bathe Self (QC): 5 (met) Upper Body Dressing (QC): 6 (met) Lower Body Dressing (QC): 5 (met) On/Off Footwear (QC): 5 (met) 1=Demonstrate adherence to instructed precautions during ADL tasks. 2=Patient will verbalize/demonstrate understanding of assistive devices/modifications for ADL. 3=Patient will improve strength/tolerance for activity to enable patient to perform ADL's. OT Education/Plan Discharge Recommendations Plan/Recommendations: Discharge/Goals Met (dc to home 05/30/2021) Therapy Discharge Recommendati: Home & Family Equpiment Recommendations-D/C: Extended Bath Bench Treatment Plan/Plan of Care Patient would benefit from OT for education, treatment and training to promote independence in ADL's, mobility, safety and/or upper extremity function for ADL's. Plan of Care: ADL Retraining, Functional Mobility, Group Exercise/Act as Ind, Orthotic Fitting/Training, UE Funct Exercise/Act, W/C Management Training Treatment Duration: Jun 06, 2021 Frequency: At least 5 of 7 days/Wk (IRF) Estimated Hrs Per Day: 1.5 hours per day Agreement: Yes Rehab Potential: Good Time/GCodes Start Time: 09:45 Stop Time: 10:45 Total Time Billed (hr/min): 60 Billed Treatment Time 1 visit-FA 1 (15 min) EX 3 (45 min) ELZA PERDOMO May 30, 2021 10:47
[2021-05-30] MEDS ORDERED: OXC5T PO (12:07)
[2021-05-30] MEDS ORDERED: MELO7.5T46 PO (12:07)
[2021-05-30] MEDS ORDERED: CYAN-41 PO (12:07)
[2021-05-30] MEDS ORDERED: HYDR30CR69 TOP (12:07)
--- NOTE | 2021-05-30 12:08 | D/C HH Face to Face Order ---
D/C Face to Face Orders Reconcile Patient Problems Problems Reviewed?: Yes Instructions for Patient Via [facility], Patient Instructions/FollowUp: PCP 1 week Ortho as scheduled Physician to follow Patient: PCP Discharge Diet for Home: No Restrictions Patient Problems: Femur fracture Patient Data-Allergies,Ht & Wt Patient Allergies: Coded Allergies: No Known Allergies (Verified Allergy, Unknown, 02/28/06) Height (Feet): 6 Height (Inches): 0.00 Weight (Pounds): 206 Weight (Ounces): 0.0 Home Health Need/Face to Face Date of Face to Face: May 30, 2021 Clinical Findings: Generalized weakness and fatigue, Instability, Muscle weakness, Pain with ambulation, Unsteady gait I have seen Pt zdcz-dk-vyky: Yes Discharged To: Home Diagnosis/Conditions: Femur fracture Patient is Homebound due to: Xavier fall risk due to instabilty, Muscle weakness, Non-weight bearing, Pain w/ambulation Homebound Status Due to the above stated illness, injury or surgical procedure (medical condition or diagnosis) and associated clinical findings, the patient is homebound because of his/her inability to leave home except with aid of a supportive device and/or person AND leaving the home requires a considerable and taxing effort or is medically contraindicated. Pt req the following assistanc: Walker, Wheelchair Home Health Nursing Orders Home Health Services Order: Nursing Services, Clay Thrower-Evaluate & Treat, Physical Therapy-Evaluate & Treat Certify Stmt I certify that this patient is under my care and that I, a nurse practitioner or a physician; a assistant news director working with me, had a face to face encounter that - meets the physician face to face encounter requirements with this patient as dated. RUDDY MEJIA DO May 30, 2021 12:08
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
[2021-05-30] MEDS ORDERED: IRON SUCROSE INJECTION 200 MG in NS (IVPB) 100 ML IV SCH (12:15)
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
[2021-05-30 17:10] VITALS: BP 119/61
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
== END 2021-05-30 15:00 | disposition home health service (06) | DRG 561 ==
PROVIDERS: ADMIT Internal Medicine; ATTEND Internal Medicine
DX: S72.40 Unspecified fracture of lower end of femur (principal); S82.852D Displaced trimalleolar fracture of left lower leg, subsequent encounter for closed fracture with routine healing; M24.411 Recurrent dislocation, right shoulder; F43.21 Adjustment disorder with depressed mood; S30.21 Contusion of penis; S30.22XD Contusion of scrotum and testes, subsequent encounter; D64.9 Anemia, unspecified; E53.8 Deficiency of other specified B group vitamins; I10 Essential (primary) hypertension; R21 Rash and other nonspecific skin eruption; Z79.82 Long term (current) use of aspirin; V97.2 Parachutist accident
CPT/HCPCS: 36415; 80053; 82607; 83540; 85025

== ENCOUNTER 2021-07-13 12:44 | Outpatient (RCR) | payer OTHER, MEDICARE ==
[~2021-07-13 12:44] MED LIST changes: +ACET-2267 PO; +ASCO500C17 PO; +ASPI-808 PO; +ASPI81TA16 PO; +BENA40TA84 PO; +CHOL200059 PO; +CHOL500L3 PO; +CYAN-41 PO; +FLUO40CA PO; +HYDR30CR69 TOP; +MELO7.5T46 PO; +NAPR220T66 PO; +OMEP20TA7 PO; +OXC5T PO; +POLY17PO54 PO; +QUERCETIN; +QUERCETIN PO; +benazepril
== END 2021-07-16 | disposition home or self-care (01) ==
PROVIDERS: ATTEND Orthopaedic Surgery
DX: S82.51XD Displaced fracture of medial malleolus of right tibia, subsequent encounter for closed fracture with routine healing (principal); S72.91XD Unspecified fracture of right femur, subsequent encounter for closed fracture with routine healing; S82.892D Other fracture of left lower leg, subsequent encounter for closed fracture with routine healing; M75.102 Unspecified rotator cuff tear or rupture of left shoulder, not specified as traumatic; M75.101 Unspecified rotator cuff tear or rupture of right shoulder, not specified as traumatic; K21.9 Gastro-esophageal reflux disease without esophagitis; I10 Essential (primary) hypertension

== ENCOUNTER 2021-08-08 14:55 | Outpatient (RCR) | payer OTHER, MEDICARE | END 2021-08-13 | disposition home or self-care (01) | PROVIDERS: ATTEND Orthopaedic Surgery | DX: S82.51XD Displaced fracture of medial malleolus of right tibia, subsequent encounter for closed fracture with routine healing (principal); S72.91XD Unspecified fracture of right femur, subsequent encounter for closed fracture with routine healing; S82.892D Other fracture of left lower leg, subsequent encounter for closed fracture with routine healing; M75.102 Unspecified rotator cuff tear or rupture of left shoulder, not specified as traumatic; M75.101 Unspecified rotator cuff tear or rupture of right shoulder, not specified as traumatic; K21.9 Gastro-esophageal reflux disease without esophagitis; I10 Essential (primary) hypertension ==

== ENCOUNTER 2021-08-29 15:35 | Outpatient (RCR) | payer OTHER, MEDICARE | END 2021-09-13 | disposition home or self-care (01) | PROVIDERS: ATTEND Orthopaedic Surgery | DX: S82.51XD Displaced fracture of medial malleolus of right tibia, subsequent encounter for closed fracture with routine healing (principal); S72.91XD Unspecified fracture of right femur, subsequent encounter for closed fracture with routine healing; S82.892D Other fracture of left lower leg, subsequent encounter for closed fracture with routine healing; M75.102 Unspecified rotator cuff tear or rupture of left shoulder, not specified as traumatic; M75.101 Unspecified rotator cuff tear or rupture of right shoulder, not specified as traumatic; K21.9 Gastro-esophageal reflux disease without esophagitis; I10 Essential (primary) hypertension; V97.2 Parachutist accident ==

== ENCOUNTER → 2022-03-15 | Outpatient (RCR) | payer OTHER, MEDICARE ==
[~2022-03-15] MED LIST changes: +OMEP20TA56 PO; -OMEP20TA7 PO
== END | disposition home or self-care (01) ==
PROVIDERS: ATTEND Orthopaedic Surgery Orthopaedic Trauma
DX: Z98.890 Other specified postprocedural states (principal)

== ENCOUNTER 2022-04-05 16:11 | Outpatient (RCR) | payer OTHER, MEDICARE | END 2022-04-15 | disposition home or self-care (01) | PROVIDERS: ATTEND Orthopaedic Surgery Orthopaedic Trauma | DX: S72.301K Unspecified fracture of shaft of right femur, subsequent encounter for closed fracture with nonunion (principal); Z98.890 Other specified postprocedural states ==

== ENCOUNTER 2022-04-24 16:25 | Outpatient (RCR) | payer OTHER, MEDICARE | END 2022-05-15 | disposition home or self-care (01) | PROVIDERS: ATTEND Orthopaedic Surgery Orthopaedic Trauma | DX: S72.301K Unspecified fracture of shaft of right femur, subsequent encounter for closed fracture with nonunion (principal); Z98.890 Other specified postprocedural states ==